=== PATIENT | female | born 1995 | race Caucasian/White ===

== ENCOUNTER → 2017-11-27 | Outpatient (CLI) | payer OTHER ==
[~2017-11-27] MED LIST: CLR10 PO; VNTHFA/IN INH
== END | disposition home or self-care (01) ==
LOC: C.LAB 16:01
PROVIDERS: ATTEND Physician Assistant
DX: L52 Erythema nodosum (principal)

== ENCOUNTER 2019-02-24 09:26 | Inpatient (IN) ==
[2019-02-24] MEDS ORDERED: DIPHTHERIA/TETANUS/PERTUSSIS 0.5 ML SYR/VIAL IM ONE (10:02)
[2019-02-24 10:13] LABS: Appearance Urine Cloudy (Clear); Bilirubin Urine Negative (Negative); Blood Urine Negative (Negative); Color Urine Yellow; Glucose Urine UA Negative (Negative); Ketones Urine Negative (Negative); Leukocyte Esterase Urine Negative (Negative); Nitrite Urine Negative (Negative); Protein Urine Negative (Negative); Specific Gravity Urine 1.008 (1.000-1.030); Urobilinogen Urine Negative (Negative); pH Urine 7.5 (4.5-7.5)
[2019-02-24 10:20] LABS: Epithelial Cell Urine >30 /lpf (0-5)
[2019-02-24 10:21] LABS: Bacteria Urine 3+ (Negative); Hyaline Casts Urine 0-5 /lpf (0-5); RBC Urine 0-4 /hpf (0-4)
[2019-02-24 10:23] LABS: Basophils # (auto) 0.03 K/uL (0-0.2); Basophils % (auto) 0.4 %; Eosinophils # (auto) 0.25 K/uL (0-0.5); Eosinophils % (auto) 3.2 %; Hematocrit (blood only) 42.8 % (37-47); Hemoglobin 15.4 g/dL (12.0-16.0); Immature Granulocytes # (auto) 0.01 K/uL (0.00-0.02); Immature Granulocytes % (auto) 0.1 %; Lymphocytes # (auto) 1.76 K/uL (1.2-3.4); Lymphocytes % (auto) 22.3 %; Mean Corpuscular Hemoglobin 33.1 pg (25-34); Mean Platelet Volume 10.6 fL (7.4-10.4); Monocytes # (auto) 0.54 K/uL (0.11-0.59); Monocytes % (auto) 6.8 %; Neutrophils % (auto) 67.2 %; Platelet Count 277 K/uL (130-400); RDW Coefficient of Variation 12.7 % (11.5-14.5); RDW Standard Deviation 42.5 fL (36.4-46.3); Red Blood Count 4.65 M/uL (4.2-5.4); White Blood Count 7.89 K/uL (4.8-10.8)
[2019-02-24 10:39] LABS: Albumin Level 4.6 gm/dl (3.4-5.0); BUN Creatinine Ratio 11.7 (10-20); Calcium 9.2 mg/dl (8.5-10.1); Creatinine Clr Calc Pharmacy 120.8 ml/min; Est GFR (African American) 147.1; Est GFR (Non-African American) 126.9; Potassium 3.5 mmol/L (3.5-5.1)
[2019-02-24 10:46] LABS: Acetaminophen < 2 ug/ml (10-30); Salicylate < 1.7 mg/dl (2.8-20)
[2019-02-24 10:46] LABS: Amphetamines+Metham, Urine Neg (Neg); Barbiturates, Urine Neg (Neg); Benzodiazepine, Urine Neg (Neg); Cocaine, Urine Neg (Neg); MDMA (Ecstacy), Urine Neg (Neg); Methadone, Urine Neg (Neg); Opiate, Urine Neg (Neg); Phencyclidine, Urine Neg (Neg)
[2019-02-24 10:50] LABS: Albumin Globulin Ratio 1.5 (0.9-2); Bilirubin,Total 0.7 mg/dl (0.2-1); Thyroid Stimulating Hormone 0.559 uIu/ml (0.300-4.500); Total Protein 7.6 gm/dl (6.4-8.2)
[2019-02-24] MEDS ORDERED: SODIUM CHLORIDE 0.65% NA SOLN 45 ML (OCEAN) PRN (12:49)
[2019-02-24] MEDS ORDERED: ALUMINUM/MAGNESIUM SUSP 30 ML UDC PO PRN (12:49)
[2019-02-24] MEDS ORDERED: MAGNESIUM HYDROXIDE SUSP 30 ML UDC PO PRN (12:49)
[2019-02-24] MEDS ORDERED: ACETAMINOPHEN 325 MG TAB PO PRN (12:49)
[2019-02-24] MEDS ORDERED: BISMUTH SUBSALICYLATE PER ML OMNICELL CHARGE PO PRN (12:49)
[2019-02-24] MEDS ORDERED: hydrOXYzine HCl 10 MG TAB PO PRN (12:49)
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
--- NOTE | 2019-02-24 13:17 | Emergency Department Note ---
Entered by Chidi Guaman acting as a scribe for Kraig Jessica History of Present Illness General Chief complaint: Mental Health Evaluation Stated complaint: MENTAL HEALTH Time Seen by Provider: 02/24/19 09:45 Source: patient Mode of arrival: ambulatory Limitations: no limitations History of Present Illness Onset (ago): day(s) (this morning) Location: head Pain Consistency: + intermittent Quality: + other (episode) Associated symptoms: + denies other symptoms (no loss in normal feelings, no guilt, no changes in energy level, no concentration loss and no headaches, suicidal ideation) and + other (self harm ) The patient is a 23 year old female who presents to the Emergency Room with complaints of an episode of intermittent mental illness that started this morning. The patient notes that she woke up with thoughts of hurting herself and cut herself with an exacto knife on both of her upper thighs. She states that she does not have any thoughts of hurting other people. She states that she w ants to receive help while she is here. She notes that at the age of 18 she received antianxiety and antidepressant medication but did not continue to take her medication. She notes that she has been sleeping very erratically. She notes she has no loss in normal feelings, no guilt, no changes in energy level, no concentration loss and no headaches. She reports that she does not know when her last tetanus shot was. Home Medications Home Medications Medication Instructions Recorded Confirmed Type ALBUTEROL HFA (VENTOLIN HFA) 2 puff INHALATION Q6H PRN #0 10/19/17 02/24/19 History Allergies Allergy/AdvReac Type Severity Reaction Status Date / Time egg Allergy Severe Anaphylaxis Verified 02/24/19 09:52 oxycodone Allergy Unknown VIOLENTLY Verified 10/26/17 06:34 VOMITS Past Med/Surg History Social History Feels Safe at Home: Yes Smoking Status: Current some day smoker Tobacco Type: cigarettes ; Review of Systems See HPI for pertinent positives & negatives. and A total of 10 systems reviewed and were otherwise negative Physical Exam Vital Signs Vital Signs - 24 hr 02/24/19 09:30 02/24/19 11:26 Temperature 36.6 C Temperature Source Oral Pulse Rate 84 Pulse Rate [Finger] 82 Respiratory Rate 18 20 Respiratory Depth Normal Blood Pressure 130/86 Blood Pressure [Left Arm] 132/81 Blood Pressure Mean 100 Blood Pressure Mean [Left Arm] 98 Pulse Oximetry 99 98 Oxygen Delivery Method Room Air Room Air Sepsis Recent Fever Within 48 Hours No Sepsis New/Unexplained Change in Mental Status No Sepsis Action Taken by Nursing No Action Required GENERAL: She is oriented to person, place, and time. She appears well-developed and well-nourished. She does not appear distressed. HENT: Exam performed. Head: Normocephalic and atraumatic. Right Ear: External ear normal. No mastoid tenderness. Left Ear: External ear normal. No mastoid tenderness. Mouth/Throat: The oropharynx is clear and moist. No trismus in the jaw. No dental abscesses or uvula swelling. No oropharyngeal exudate or tonsillar abscesses. EYES: Conjunctivae and EOM are normal. Pupils are equal, round, and reactive to light. Right eye exhibits no discharge. Left eye exhibits no discharge. No scleral icterus. NECK: Normal range of motion. Neck supple. No JVD present. No spinous process tenderness present. No carotid bruit present. No rigidity. No tracheal deviation and normal range of motion present. No Brudzinski's sign and no Kernig's sign noted. CV: Normal rate, regular rhythm, normal heart sounds and intact distal pulses. There is no peripheral edema. Palpable radial pulses bue. PULM/CHEST: Effort normal and breath sounds normal. No respiratory distress. No stridor. She has no wheezes. She has no rales. Chest Wall: She exhibits no tenderness. ABD: The abdomen is soft. Bowel sounds are normal. She has no distension. No mass is present. There is no tenderness. There is no rebound, no guarding, no Morgan's sign and no tenderness at McBurney's point. Rovsig negative MUSC/SKEL: Normal range of motion. There is no peripheral edema, tenderness or deformity. Abrasions of bilateral thighs. LYMPH: No cervical adenopathy. NEURO: She is alert and oriented to person, place, and time. She has normal strength. No cranial nerve deficit or sensory deficit. Coordination and gait normal. GCS eye subscore is 4. GCS verbal subscore is 5. GCS motor subscore is 6. cerbellar tests wnl. SKIN: Skin is warm and dry. She is not diaphoretic. PSYCH: Abnormal affectl. Course Course A05: The patient was evaluated in room 0957. A complete history and physical exam was performed. 1250: Vitals are stable, the patient was medically cleared and will be admitted to [address] [place] [address]. Administered Medications Discontinued Medications Diphtheria/Pertussis/Tetanus Vacc (Adacel) 0.5 ml IM .ONCE ONE Stop: 02/24/19 10:03 Last Admin: 02/24/19 10:39 Dose: 0.5 ml Documented by: [id number] Impression & Plan Suicidal ideation Discharge Plan Visit Data *Final* Discharge Date/Time: 02/24/19 12:49 Chief Complaint: Mental Health Evaluation Stated Complaint: MENTAL HEALTH ED Provider: Kraig Jessica Discharge Problem: Suicidal ideation Patient Disposition: Admitted As Inpatient Discharge Instructions Interventions: ED Discharge Assessment Last Done: 02/24/19 12:49 Medical Decision Making Medical Records Attestation: I reviewed the patient's medical records. Home Medications Current Medication List: was personally reviewed by me Laboratory Data Attestation: I reviewed the patient's lab results. Result diagrams: 02/24/19 10:04 02/24/19 10:04 Lab Results 02/24/19 02/24/19 02/24/19 Range/Units 10:00 10:00 10:00 WBC (4.8-10.8) K/uL RBC (4.2-5.4) M/uL Hgb (12.0-16.0) g/dL Hct (37-47) % MCV (80-100) fL MCH (25-34) pg MCHC (32-36) g/dL RDW Std Deviation (36.4-46.3) fL RDW Coeff of Sonal (11.5-14.5) % Plt Count (130-400) K/uL MPV (7.4-10.4) fL Immature Gran % (Auto) % Neut % (Auto) % Lymph % (Auto) % [place] % (Auto) % Eos % (Auto) % Baso % (Auto) % Immature Gran # (Auto) (0.00-0.02) K/uL Neut # (Auto) (1.4-6.5) K/uL Lymph # (Auto) (1.2-3.4) K/uL [place] # (Auto) (0.11-0.59) K/uL Eos # (Auto) (0-0.5) K/uL Baso # (Auto) (0-0.2) K/uL Sodium (136-145) mmol/L Potassium (3.5-5.1) mmol/L Chloride (98-107) mmol/L Carbon Dioxide (21-32) mmol/L Anion Gap (3-11) BUN (7-18) mg/dl Creatinine (0.6-1.2) mg/dl Est Cr Clr Drug Dosing ml/min Est GFR ( Amer) Est GFR (Non-Af Amer) BUN/Creatinine Ratio (10-20) Glucose (70-99) mg/dl Calcium (8.5-10.1) mg/dl Total Bilirubin (0.2-1) mg/dl AST (15-37) U/L ALT (12-78) U/L Alkaline Phosphatase (45-117) U/L Total Protein (6.4-8.2) gm/dl Albumin (3.4-5.0) gm/dl Globulin (2.5-4.0) gm/dl Albumin/Globulin Ratio (0.9-2) TSH (0.300-4.500) uIu/ml Urine Color Yellow Urine Appearance Cloudy A (Clear) Urine pH 7.5 (4.5-7.5) Ur Specific [place] 1.008 (1.000-1.030) Urine Protein Negative (Negative) Urine Glucose (UA) Negative (Negative) Urine Ketones Negative (Negative) Urine Blood Negative (Negative) Urine Nitrite Negative (Negative) Urine Bilirubin Negative (Negative) Urine Urobilinogen Negative (Negative) Ur Leukocyte Esterase Negative (Negative) Urine RBC 0-4 (0-4) /hpf Urine WBC 5-10 H (0-5) /hpf Ur Epithelial Cells >30 H (0-5) /lpf Urine Bacteria 3+ H (Negative) Hyaline Casts 0-5 (0-5) /lpf POC Ur Test NEG (NEG) Salicylates (2.8-20) mg/dl Urine Opiates Screen Neg (Neg) Ur Methadone, Qual Neg (Neg) Acetaminophen (10-30) ug/ml Urine Barbiturates Neg (Neg) Ur Phencyclidine (PCP) Neg (Neg) U Amphetamin/Meth Scrn Neg (Neg) MDMA (Ecstasy) Screen Neg (Neg) U Benzodiazepines Scrn Neg (Neg) Ur Cocaine Metabolite Neg (Neg) U Marijuana (THC) Screen Pos H (Neg) Ethyl Alcohol mg/dL (0-3) mg/dl 02/24/19 02/24/19 02/24/19 Range/Units 10:04 10:04 10:04 WBC 7.89 (4.8-10.8) K/uL RBC 4.65 (4.2-5.4) M/uL Hgb 15.4 (12.0-16.0) g/dL Hct 42.8 (37-47) % MCV 92.0 (80-100) fL MCH 33.1 (25-34) pg MCHC 36.0 (32-36) g/dL RDW Std Deviation 42.5 (36.4-46.3) fL RDW Coeff of Sonal 12.7 (11.5-14.5) % Plt Count 277 (130-400) K/uL MPV 10.6 H (7.4-10.4) fL Immature Gran % (Auto) 0.1 % Neut % (Auto) 67.2 % Lymph % (Auto) 22.3 % [place] % (Auto) 6.8 % Eos % (Auto) 3.2 % Baso % (Auto) 0.4 % Immature Gran # (Auto) 0.01 (0.00-0.02) K/uL Neut # (Auto) 5.30 (1.4-6.5) K/uL Lymph # (Auto) 1.76 (1.2-3.4) K/uL [place] # (Auto) 0.54 (0.11-0.59) K/uL Eos # (Auto) 0.25 (0-0.5) K/uL Baso # (Auto) 0.03 (0-0.2) K/uL Sodium 139 (136-145) mmol/L Potassium 3.5 (3.5-5.1) mmol/L Chloride 106 (98-107) mmol/L Carbon Dioxide 26 (21-32) mmol/L Anion Gap 7.0 (3-11) BUN 7 (7-18) mg/dl Creatinine 0.61 (0.6-1.2) mg/dl Est Cr Clr Drug Dosing 120.8 ml/min Est GFR ( Amer) 147.1 Est GFR (Non-Af Amer) 126.9 BUN/Creatinine Ratio 11.7 (10-20) Glucose 91 (70-99) mg/dl Calcium 9.2 (8.5-10.1) mg/dl Total Bilirubin 0.7 (0.2-1) mg/dl AST 19 (15-37) U/L ALT 24 (12-78) U/L Alkaline Phosphatase 46 (45-117) U/L Total Protein 7.6 (6.4-8.2) gm/dl Albumin 4.6 (3.4-5.0) gm/dl Globulin 3.0 (2.5-4.0) gm/dl Albumin/Globulin Ratio 1.5 (0.9-2) TSH 0.559 (0.300-4.500) uIu/ml Urine Color Urine Appearance (Clear) Urine pH (4.5-7.5) Ur Specific [place] (1.000-1.030) Urine Protein (Negative) Urine Glucose (UA) (Negative) Urine Ketones (Negative) Urine Blood (Negative) Urine Nitrite (Negative) Urine Bilirubin (Negative) Urine Urobilinogen (Negative) Ur Leukocyte Esterase (Negative) Urine RBC (0-4) /hpf Urine WBC (0-5) /hpf Ur Epithelial Cells (0-5) /lpf Urine Bacteria (Negative) Hyaline Casts (0-5) /lpf POC Ur Test (NEG) Salicylates < 1.7 L (2.8-20) mg/dl Urine Opiates Screen (Neg) Ur Methadone, Qual (Neg) Acetaminophen < 2 L (10-30) ug/ml Urine Barbiturates (Neg) Ur Phencyclidine (PCP) (Neg) U Amphetamin/Meth Scrn (Neg) MDMA (Ecstasy) Screen (Neg) U Benzodiazepines Scrn (Neg) Ur Cocaine Metabolite (Neg) U Marijuana (THC) Screen (Neg) Ethyl Alcohol mg/dL (0-3) mg/dl 02/24/19 Range/Units 10:04 WBC (4.8-10.8) K/uL RBC (4.2-5.4) M/uL Hgb (12.0-16.0) g/dL Hct (37-47) % MCV (80-100) fL MCH (25-34) pg MCHC (32-36) g/dL RDW Std Deviation (36.4-46.3) fL RDW Coeff of Sonal (11.5-14.5) % Plt Count (130-400) K/uL MPV (7.4-10.4) fL Immature Gran % (Auto) % Neut % (Auto) % Lymph % (Auto) % [place] % (Auto) % Eos % (Auto) % Baso % (Auto) % Immature Gran # (Auto) (0.00-0.02) K/uL Neut # (Auto) (1.4-6.5) K/uL Lymph # (Auto) (1.2-3.4) K/uL [place] # (Auto) (0.11-0.59) K/uL Eos # (Auto) (0-0.5) K/uL Baso # (Auto) (0-0.2) K/uL Sodium (136-145) mmol/L Potassium (3.5-5.1) mmol/L Chloride (98-107) mmol/L Carbon Dioxide (21-32) mmol/L Anion Gap (3-11) BUN (7-18) mg/dl Creatinine (0.6-1.2) mg/dl Est Cr Clr Drug Dosing ml/min Est GFR ( Amer) Est GFR (Non-Af Amer) BUN/Creatinine Ratio (10-20) Glucose (70-99) mg/dl Calcium (8.5-10.1) mg/dl Total Bilirubin (0.2-1) mg/dl AST (15-37) U/L ALT (12-78) U/L Alkaline Phosphatase (45-117) U/L Total Protein (6.4-8.2) gm/dl Albumin (3.4-5.0) gm/dl Globulin (2.5-4.0) gm/dl Albumin/Globulin Ratio (0.9-2) TSH (0.300-4.500) uIu/ml Urine Color Urine Appearance (Clear) Urine pH (4.5-7.5) Ur Specific [place] (1.000-1.030) Urine Protein (Negative) Urine Glucose (UA) (Negative) Urine Ketones (Negative) Urine Blood (Negative) Urine Nitrite (Negative) Urine Bilirubin (Negative) Urine Urobilinogen (Negative) Ur Leukocyte Esterase (Negative) Urine RBC (0-4) /hpf Urine WBC (0-5) /hpf Ur Epithelial Cells (0-5) /lpf Urine Bacteria (Negative) Hyaline Casts (0-5) /lpf POC Ur Test (NEG) Salicylates (2.8-20) mg/dl Urine Opiates Screen (Neg) Ur Methadone, Qual (Neg) Acetaminophen (10-30) ug/ml Urine Barbiturates (Neg) Ur Phencyclidine (PCP) (Neg) U Amphetamin/Meth Scrn (Neg) MDMA (Ecstasy) Screen (Neg) U Benzodiazepines Scrn (Neg) Ur Cocaine Metabolite (Neg) U Marijuana (THC) Screen (Neg) Ethyl Alcohol mg/dL < 3.0 (0-3) mg/dl Blood Pressure Blood Pressure Findings: Elevated blood pressure Blood Pressure Disposition: further management by hospitalist The scribe's documentation has been prepared under my direction and personally reviewed by me in its entirety. I confirm that the note above accurately reflects all work, treatment, procedures, and medical decision making performed by me.
--- NOTE | 2019-02-24 13:37 | Emergency Department Note ---
Entered by Chidi Guaman acting as a scribe for Kraig Jessica History of Present Illness General Chief complaint: Mental Health Evaluation Stated complaint: MENTAL HEALTH Time Seen by Provider: 02/24/19 09:45 Source: patient Mode of arrival: ambulatory History of Present Illness Onset (ago): day(s) (this morning) Location: head Pain Consistency: + intermittent Quality: + other (episode) Associated symptoms: + denies other symptoms (no loss in normal feelings, no g uilt, no changes in energy level, no concentration loss and no headaches) and + other (seld harm) The patient is a 23 year old female who presents to the Emergency Room with complaints of self-inflicted cutting this morning. The patient notes that she woke up with thoughts of hurting herself and cut herself with an exacto knife on both of her upper thighs. She states that she does not have any thoughts of hurting other people. She states that she wants to receive help while she is here. She notes that at the age of 18 she received antianxiety and antidepress ant medication but did not continue to take her medication. She notes that she has been sleeping very erratically. She notes she has no loss in normal feelings, no guilt, no changes in energy level, no difficulties concentrating. She reports that she does not know when her last tetanus shot was Home Medications Home Medications Medication Instructions Recorded Confirmed Type ALBUTEROL HFA (VENTOLIN HFA) 2 puff INHALATION Q6H PRN #0 10/19/17 02/24/19 History Allergies Allergy/AdvReac Type Severity Reaction Status Date / Time egg Allergy Severe Anaphylaxis Verified 02/24/19 09:52 oxycodone Allergy Unknown VIOLENTLY Verified 10/26/17 06:34 VOMITS Past Med/Surg History Social History Feels Safe at Home: Yes Smoking Status: Current some day smoker Tobacco Type: cigarettes ; Review of Systems See HPI for pertinent positives & negatives. and A total of 10 systems reviewed and were otherwise negative Physical Exam Vital Signs Vital Signs - 24 hr 02/24/19 09:30 02/24/19 11:26 Temperature 36.6 C Temperature Source Oral Pulse Rate 84 Pulse Rate [Finger] 82 Respiratory Rate 18 20 Respiratory Depth Normal Blood Pressure 130/86 Blood Pressure [Left Arm] 132/81 Blood Pressure Mean 100 Blood Pressure Mean [Left Arm] 98 Pulse Oximetry 99 98 Oxygen Delivery Method Room Air Room Air Sepsis Recent Fever Within 48 Hours No Sepsis New/Unexplained Change in Mental Status No Sepsis Action Taken by Nursing No Action Required GENERAL: She is oriented to person, place, and time. She appears well-developed and well-nourished. She does not appear distressed. HENT: Exam performed. Head: Normocephalic and atraumatic. Right Ear: External ear normal. No mastoid tenderness. Left Ear: External ear normal. No mastoid tenderness. Mouth/Throat: The oropharynx is clear and moist. No trismus in the jaw. No dental abscesses or uvula swelling. No oropharyngeal exudate or tonsillar abscesses. EYES: Conjunctivae and EOM are normal. Pupils are equal, round, and reactive to light. Right eye exhibits no discharge. Left eye exhibits no discharge. No scler al icterus. NECK: Normal range of motion. Neck supple. No JVD present. No spinous process tenderness present. No carotid bruit present. No rigidity. No tracheal deviation and normal range of motion present. No Brudzinski's sign and no Kernig's sign noted. CV: Normal rate, regular rhythm, normal heart sounds and intact distal pulses. There is no peripheral edema. Palpable radial pulses bue. PULM/CHEST: Effort normal and breath sounds normal. No respiratory distress. No stridor. She has no wheezes. She has no rales. Chest Wall: She exhibits no tenderness. ABD: The abdomen is soft. Bowel sounds are normal. She has no distension. No mass is present. There is no tenderness. There is no rebound, no guarding, no Morgan's sign and no tenderness at McBurney's point. Rovsig negative MUSC/SKEL: Normal range of motion. There is no peripheral edema, tenderness or deformity. Abrasions of bilateral thighs. LYMPH: No cervical adenopathy. NEURO: She is alert and oriented to person, place, and time. She has normal strength. No cranial nerve deficit or sensory deficit. Coordination and gait normal. GCS eye subscore is 4. GCS verbal subscore is 5. GCS motor subscore is 6. cerbellar tests wnl. SKIN: Skin is warm and dry. She is not diaphoretic. PSYCH: Abnormal affectl. Course Course A05: The patient was evaluated in room 0957. A complete history and physical exam was performed. 1250: Vitals are stable, the patient was medically cleared and will be admitted to [address] [place] [address]. Administered Medications Discontinued Medications Diphtheria/Pertussis/Tetanus Vacc (Adacel) 0.5 ml IM .ONCE ONE Stop: 02/24/19 10:03 Last Admin: 02/24/19 10:39 Dose: 0.5 ml Documented by: [id number] Medical Decision Making Medical Records Attestation: I reviewed the patient's medical records. Home Medications Current Medication List: was personally reviewed by me Laboratory Data Attestation: I reviewed the patient's lab results. Result diagrams: 02/24/19 10:04 02/24/19 10:04 Lab Results 02/24/19 02/24/19 02/24/19 Range/Units 10:00 10:00 10:00 WBC (4.8-10.8) K/uL RBC (4.2-5.4) M/uL Hgb (12.0-16.0) g/dL Hct (37-47) % MCV (80-100) fL MCH (25-34) pg MCHC (32-36) g/dL RDW Std Deviation (36.4-46.3) fL RDW Coeff of Sonal (11.5-14.5) % Plt Count (130-400) K/uL MPV (7.4-10.4) fL Immature Gran % (Auto) % Neut % (Auto) % Lymph % (Auto) % Woodford % (Auto) % Eos % (Auto) % Baso % (Auto) % Immature Gran # (Auto) (0.00-0.02) K/uL Neut # (Auto) (1.4-6.5) K/uL Lymph # (Auto) (1.2-3.4) K/uL [place] # (Auto) (0.11-0.59) K/uL Eos # (Auto) (0-0.5) K/uL Baso # (Auto) (0-0.2) K/uL Sodium (136-145) mmol/L Potassium (3.5-5.1) mmol/L Chloride (98-107) mmol/L Carbon Dioxide (21-32) mmol/L Anion Gap (3-11) BUN (7-18) mg/dl Creatinine (0.6-1.2) mg/dl Est Cr Clr Drug Dosing ml/min Est GFR ( Amer) Est GFR (Non-Af Amer) BUN/Creatinine Ratio (10-20) Glucose (70-99) mg/dl Calcium (8.5-10.1) mg/dl Total Bilirubin (0.2-1) mg/dl AST (15-37) U/L ALT (12-78) U/L Alkaline Phosphatase (45-117) U/L Total Protein (6.4-8.2) gm/dl Albumin (3.4-5.0) gm/dl Globulin (2.5-4.0) gm/dl Albumin/Globulin Ratio (0.9-2) TSH (0.300-4.500) uIu/ml Urine Color Yellow Urine Appearance Cloudy A (Clear) Urine pH 7.5 (4.5-7.5) Ur Specific Sc[place]ey 1.008 (1.000-1.030) Urine Protein Negative (Negative) Urine Glucose (UA) Negative (Negative) Urine Ketones Negative (Negative) Urine Blood Negative (Negative) Urine Nitrite Negative (Negative) Urine Bilirubin Negative (Negative) Urine Urobilinogen Negative (Negative) Ur Leukocyte Esterase Negative (Negative) Urine RBC 0-4 (0-4) /hpf Urine WBC 5-10 H (0-5) /hpf Ur Epithelial Cells >30 H (0-5) /lpf Urine Bacteria 3+ H (Negative) Hyaline Casts 0-5 (0-5) /lpf POC Ur Test NEG (NEG) Salicylates (2.8-20) mg/dl Urine Opiates Screen Neg (Neg) Ur Methadone, Qual Neg (Neg) Acetaminophen (10-30) ug/ml Urine Barbiturates Neg (Neg) Ur Phencyclidine (PCP) Neg (Neg) U Amphetamin/Meth Scrn Neg (Neg) MDMA (Ecstasy) Screen Neg (Neg) U Benzodiazepines Scrn Neg (Neg) Ur Cocaine Metabolite Neg (Neg) U Marijuana (THC) Screen Pos H (Neg) Ethyl Alcohol mg/dL (0-3) mg/dl 02/24/19 02/24/19 02/24/19 Range/Units 10:04 10:04 10:04 WBC 7.89 (4.8-10.8) K/uL RBC 4.65 (4.2-5.4) M/uL Hgb 15.4 (12.0-16.0) g/dL Hct 42.8 (37-47) % MCV 92.0 (80-100) fL MCH 33.1 (25-34) pg MCHC 36.0 (32-36) g/dL RDW Std Deviation 42.5 (36.4-46.3) fL RDW Coeff of Sonal 12.7 (11.5-14.5) % Plt Count 277 (130-400) K/uL MPV 10.6 H (7.4-10.4) fL Immature Gran % (Auto) 0.1 % Neut % (Auto) 67.2 % Lymph % (Auto) 22.3 % Woodford % (Auto) 6.8 % Eos % (Auto) 3.2 % Baso % (Auto) 0.4 % Immature Gran # (Auto) 0.01 (0.00-0.02) K/uL Neut # (Auto) 5.30 (1.4-6.5) K/uL Lymph # (Auto) 1.76 (1.2-3.4) K/uL [place] # (Auto) 0.54 (0.11-0.59) K/uL Eos # (Auto) 0.25 (0-0.5) K/uL Baso # (Auto) 0.03 (0-0.2) K/uL Sodium 139 (136-145) mmol/L Potassium 3.5 (3.5-5.1) mmol/L Chloride 106 (98-107) mmol/L Carbon Dioxide 26 (21-32) mmol/L Anion Gap 7.0 (3-11) BUN 7 (7-18) mg/dl Creatinine 0.61 (0.6-1.2) mg/dl Est Cr Clr Drug Dosing 120.8 ml/min Est GFR ( Amer) 147.1 Est GFR (Non-Af Amer) 126.9 BUN/Creatinine Ratio 11.7 (10-20) Glucose 91 (70-99) mg/dl Calcium 9.2 (8.5-10.1) mg/dl Total Bilirubin 0.7 (0.2-1) mg/dl AST 19 (15-37) U/L ALT 24 (12-78) U/L Alkaline Phosphatase 46 (45-117) U/L Total Protein 7.6 (6.4-8.2) gm/dl Albumin 4.6 (3.4-5.0) gm/dl Globulin 3.0 (2.5-4.0) gm/dl Albumin/Globulin Ratio 1.5 (0.9-2) TSH 0.559 (0.300-4.500) uIu/ml Urine Color Urine Appearance (Clear) Urine pH (4.5-7.5) Ur Specific Sc[place]ey (1.000-1.030) Urine Protein (Negative) Urine Glucose (UA) (Negative) Urine Ketones (Negative) Urine Blood (Negative) Urine Nitrite (Negative) Urine Bilirubin (Negative) Urine Urobilinogen (Negative) Ur Leukocyte Esterase (Negative) Urine RBC (0-4) /hpf Urine WBC (0-5) /hpf Ur Epithelial Cells (0-5) /lpf Urine Bacteria (Negative) Hyaline Casts (0-5) /lpf POC Ur Test (NEG) Salicylates < 1.7 L (2.8-20) mg/dl Urine Opiates Screen (Neg) Ur Methadone, Qual (Neg) Acetaminophen < 2 L (10-30) ug/ml Urine Barbiturates (Neg) Ur Phencyclidine (PCP) (Neg) U Amphetamin/Meth Scrn (Neg) MDMA (Ecstasy) Screen (Neg) U Benzodiazepines Scrn (Neg) Ur Cocaine Metabolite (Neg) U Marijuana (THC) Screen (Neg) Ethyl Alcohol mg/dL (0-3) mg/dl 02/24/19 Range/Units 10:04 WBC (4.8-10.8) K/uL RBC (4.2-5.4) M/uL Hgb (12.0-16.0) g/dL Hct (37-47) % MCV (80-100) fL MCH (25-34) pg MCHC (32-36) g/dL RDW Std Deviation (36.4-46.3) fL RDW Coeff of Sonal (11.5-14.5) % Plt Count (130-400) K/uL MPV (7.4-10.4) fL Immature Gran % (Auto) % Neut % (Auto) % Lymph % (Auto) % Woodford % (Auto) % Eos % (Auto) % Baso % (Auto) % Immature Gran # (Auto) (0.00-0.02) K/uL Neut # (Auto) (1.4-6.5) K/uL Lymph # (Auto) (1.2-3.4) K/uL [place] # (Auto) (0.11-0.59) K/uL Eos # (Auto) (0-0.5) K/uL Baso # (Auto) (0-0.2) K/uL Sodium (136-145) mmol/L Potassium (3.5-5.1) mmol/L Chloride (98-107) mmol/L Carbon Dioxide (21-32) mmol/L Anion Gap (3-11) BUN (7-18) mg/dl Creatinine (0.6-1.2) mg/dl Est Cr Clr Drug Dosing ml/min Est GFR ( Amer) Est GFR (Non-Af Amer) BUN/Creatinine Ratio (10-20) Glucose (70-99) mg/dl Calcium (8.5-10.1) mg/dl Total Bilirubin (0.2-1) mg/dl AST (15-37) U/L ALT (12-78) U/L Alkaline Phosphatase (45-117) U/L Total Protein (6.4-8.2) gm/dl Albumin (3.4-5.0) gm/dl Globulin (2.5-4.0) gm/dl Albumin/Globulin Ratio (0.9-2) TSH (0.300-4.500) uIu/ml Urine Color Urine Appearance (Clear) Urine pH (4.5-7.5) Ur Specific Sc[place]ey (1.000-1.030) Urine Protein (Negative) Urine Glucose (UA) (Negative) Urine Ketones (Negative) Urine Blood (Negative) Urine Nitrite (Negative) Urine Bilirubin (Negative) Urine Urobilinogen (Negative) Ur Leukocyte Esterase (Negative) Urine RBC (0-4) /hpf Urine WBC (0-5) /hpf Ur Epithelial Cells (0-5) /lpf Urine Bacteria (Negative) Hyaline Casts (0-5) /lpf POC Ur Test (NEG) Salicylates (2.8-20) mg/dl Urine Opiates Screen (Neg) Ur Methadone, Qual (Neg) Acetaminophen (10-30) ug/ml Urine Barbiturates (Neg) Ur Phencyclidine (PCP) (Neg) U Amphetamin/Meth Scrn (Neg) MDMA (Ecstasy) Screen (Neg) U Benzodiazepines Scrn (Neg) Ur Cocaine Metabolite (Neg) U Marijuana (THC) Screen (Neg) Ethyl Alcohol mg/dL < 3.0 (0-3) mg/dl Blood Pressure Blood Pressure Findings: Elevated blood pressure Blood Pressure Disposition: further management by hospitalist MDM Narrative Vitals are stable, the patient was medically cleared and will be admitted to [address] [place] [address]. Impression & Plan Suicidal ideation Discharge Plan Visit Data *Final* Discharge Date/Time: 02/24/19 12:49 Chief Complaint: Mental Health Evaluation Stated Complaint: MENTAL HEALTH ED Provider: Kraig Jessica Discharge Problem: Suicidal ideation Patient Disposition: Admitted As Inpatient Discharge Instructions Interventions: ED Discharge Assessment Last Done: 02/24/19 12:49 The scribe's documentation has been prepared under my direction and personally reviewed by me in its entirety. I confirm that the note above accurately reflects all work, treatment, procedures, and medical decision making performed by me.
[2019-02-24] MEDS ORDERED: FLUOXETINE HCL 10 MG CAP PO STA (15:29)
[2019-02-24] MEDS ORDERED: ALBUTEROL HFA 8 GM INHALER INH PRN (18:52)
[2019-02-25] MEDS: FLUOXETINE HCL 20 MG CAP PO SCH (09:20)
[2019-02-25] MEDS ORDERED: NICOTINE POLACRILEX 2 MG GUM MT PRN (13:27)
--- NOTE | 2019-02-25 17:56 | Psychiatric Progress Note ---
Date of Service February 25, 2019 Impression / Recommendations Impression 23-year-old female admitted voluntarily for inpatient psychiatric treatment on 02/24/19 after presenting to the ED with reports of worsening depression and anxiety. Having had an act of SIB by cutting prior to admission, patient states she was concerned that "a moment of weakness" would have the potential of severe harm to self. She requested treatment. Pt admits to having purchased an extension cord last week, which she keeps in the trunk of her car "just in case." She has no outpatient psychiatric prescribers. While patient currently meets criteria for major depressive disorder, generalized anxiety disorder, and PTSD - she self-reports "esteban" for a 1-2 day period after very low moods. She describes this as "catching up" for work not completed during episodes of limited motivation, but denies expansive thoughts, becoming hyperverbal, rapid speech, and reckless behaviors. She does admit to requiring less sleep at these times. Recommend observing for potential activation, but at this time symptoms do not seem to meet sufficient criteria for a bipolar II diagnosis. Medication options were discussed with the patient to target depression, anxiety, and PTSD symptoms. After reviewing risks, benefits, potential side effects, and risk for black box warning regarding potential SI with SSRI/SNRI initiation - patient was requesting to initiate fluoxetine. She was provided with a 10mg dose on 02/24 raised to 20mg a day on 02/25. Pt is agreeable with outpatient therapy referral. During her admission, she will be encouraged to participate in group and recreational programming. Family meeting with . At this time, inpatient psychiatric admission is medically necessary due to serious potential for harm to self or suicide if discharged prematurely. Dr. Georges Gray was directly involved in review and discussion of the patient's case and participated in medical decision making regarding treatment recommendations. (1) Suicidal ideation: 02/24 - Admitted to a locked inpatient behavioral health unit, on q15 minute safety checks - Encourage medication initiation/adjustments as indicated - Encourage participation in group and recreational therapies - Gather collateral information from outpatient providers - Suggest family meeting to involve outpatient supports in safety planning - Arrange appropriate aftercare (2) Depression: 02/24 - Initiate fluoxetine 10mg one-time dose today; increasing to 20mg qAM starting tomorrow morning - Encourage participation in group and recreational programming - Refer for outpatient psychiatrist and therapist - Encourage family meeting with /family 02/25 -fluoxetine 20mg a day starting today -family meeting with -addressing how therapy can be helpful (3) Generalized anxiety disorder with panic attacks: 02/24 - Initiate fluoxetine as above - Hydroxyzine 25mg prn for acute anxiety - Encourage development of healthy and effective coping strategies 02/25 - as above (4) PTSD (post-traumatic stress disorder): 02/24 - Initiate fluoxetine as outlined above - Pt agreeable with referral for outpatient therapy - Encourage participation in group and recreational programming 02/25 -as above, -reviewed grounding techniques and diaphemetric breathing -reviewed how therapy can help with containing symptoms and help her work through her trauma in more constructive manner (5) Asthma: 02/24 - Continue albuterol inhaler prn Inventory Assets Strengths: willingness for treatment, positive outpatient supports, desire for continued outpatient treatment Needs: initiation of indicated medications, development of healthy and effective coping strategies Risk Factors Assessment Male: No : Yes Do You Have Access To A Gun?: No Health Problems: No Mental Health Diagnoses: Yes Substance Use Disorders: No Previous Attempt: Yes Family History of Suicide: No Previous Psychiatric Hospitalization: No Hopelessness: Yes Smoker: Yes Protective Factors Assessment Christian Beliefs: Yes : Yes Responsible for Young Children: Yes Employed: Yes Stable Relationships: Yes Supportive Family: Yes Interval History Chief Complaint "ok anxious to get home". Review of Systems Sleep Information Total Hours of Sleep: 6.75 Meal Information Percent Meal Consumed - Breakfast: 100 Percent Meal Consumed - Lunch: 75 Percent Meal Consumed - Dinner: 75 Subjective Subjective Patient was seen & assessed and interval progress reviewed with Nursing and social work. Today's focus Was addressing patient's tendency to feel numbed out and have PTSD symptoms including reexperiencing symptoms and how they affect her this leads her to cut herself as a way to try and deal with things she also tends to feel numb and has avoidance of things that can trigger her flashbacks and intrusive memories and is 1 of the main reasons why she has been avoiding therapy in the past. We processed this and focused on how therapy can actually be helpful in helping her ground herself and deal with her symptoms and the more constructive way and to help her contain her emotional distress. We also focused on her family meeting that was about to occur with her and how he is open-minded and supportive but can struggle to understand how to help her and is not wanting to really believe in psychiatry and mental health concerns. She denied side effects to Prozac and is hopeful that it can help her lower her anxiety depression and PTSD symptoms she denied suicidal thinking today. She denied side effects to Prozac Physical Exam Psychiatric Orientation: alert, oriented x 3 and cooperative (and pleasant) Apperance: appropriately dressed, appropriately groomed and appeared stated age Eye Contact: good eye contact Motor Behavior: steady gait and station and no abnormal motor movements Speech: normal rate/rhythm/volume of speech Affect: + anxious affect and mood congruent with affect Mood: + anxious mood Thought Process: goal directed thought process, linear/logical thought process, clear/coherent thought process and thought association intact Thought Content: reality based without delusions Suicidal Thoughts: denies suicidal thoughts (presently, but was unable to contract for safety outside of the hospital) and denies suicidal intent (presently, but keeps suicide "as an option") Homicidal Thoughts: denies homicidal thoughts Hallucinations: no auditory hallucinations and no visual hallucinations Cognition: remote memory grossly intact, attention grossly intact and language grossly intact Estimated Intelligence: consistent with education level Insight: + fair insight Judgement: + fair judgement Vital Signs (Past 24 Hours) Last Vital Signs Temp 36.6 C 02/25/19 06:00 Pulse 106 H 02/25/19 06:40 Resp 17 02/25/19 06:00 BP 117/78 02/25/19 06:40 Pulse Ox 98 02/24/19 11:26 Results & Data Current Inpatient Medications Current Inpatient Medications: Current Inpatient Medications Acetaminophen (Tylenol) 650 mg PO Q4H PRN PRN Reason: Headache or Minor Fever Stop: 03/26/19 12:48 Last Admin: 02/24/19 15:44 Dose: 650 mg Documented by: Al Hydrox/Mg Hydrox/Simethicone (Maalox) 30 ml PO Q4H PRN PRN Reason: GI Upset Stop: 03/26/19 12:48 Albuterol (Ventolin Hfa) 2 puffs INH Q6H PRN PRN Reason: SOB/Wheezing Stop: 03/26/19 18:51 Bismuth Subsalicylate (Kaopectate) 15 ml PO PRN PRN PRN Reason: Loose Stool Stop: 03/26/19 12:48 Fluoxetine HCl (Prozac) 20 mg PO QAM DB Stop: 03/27/19 08:59 Last Admin: 02/25/19 09:20 Dose: 20 mg Documented by: Hydroxyzine HCl (Vistaril) 25 mg PO Q4H PRN PRN Reason: Anxiety Stop: 03/26/19 12:48 Hydroxyzine HCl (Vistaril) 50 mg PO HSZ PRN PRN Reason: insomnia Stop: 03/26/19 13:25 Magnesium Hydroxide (Milk Of Magnesia) 30 ml PO DAILY PRN PRN Reason: Constipation Stop: 03/26/19 12:48 Nicotine Polacrilex (Nicorette 2mg) 1 piece [place] PRN PRN PRN Reason: cravings Stop: 03/27/19 13:26 Sodium Chloride ([place] Nasal) 1 - 2 sprays NA PRN PRN PRN Reason: Nasal Dryness/Congestion Stop: 03/26/19 12:48 Mental Health & Subst Abuse Tx Therapist Name of Therapist: none Accident Report Clerk Name of Accident Report Clerk: none Post Discharge Appointments Primary Care Physician Name Of Family Doctor: Easton Rebolledo Primary Care Provider Appointment Comment: [address] [place] [address] Contact Information Discharge Discharge [address]: [address] [place] [address], [address] [address] (1) Depression Depression Type: unspecified Qualified Code(s): F32.9 - Major depressive disorder, single episode, unspecified
[2019-02-26] MEDS: FLUOXETINE HCL 20 MG CAP PO SCH (08:03)
--- NOTE | 2019-02-26 17:46 | Psychiatric Progress Note ---
Date of Service February 26, 2019 Impression / Recommendations Impression 23-year-old female admitted voluntarily for inpatient psychiatric treatment on 02/24/19 after presenting to the ED with reports of worsening depression and anxiety. Having had an act of SIB by cutting prior to admission, patient states she was concerned that "a moment of weakness" would have the potential of severe harm to self. She requested treatment. Pt admits to having purchased an extension cord last week, which she keeps in the trunk of her car "just in case." She has no outpatient psychiatric prescribers. While patient currently meets criteria for major depressive disorder, generalized anxiety disorder, and PTSD - she self-reports "esteban" for a 1-2 day period after very low moods. She describes this as "catching up" for work not completed during episodes of limited motivation, but denies expansive thoughts, becoming hyperverbal, rapid speech, and reckless behaviors. She does admit to requiring less sleep at these times. Recommend observing for potential activation, but at this time symptoms do not seem to meet sufficient criteria for a bipolar II diagnosis. Medication options were discussed with the patient to target depression, anxiety, and PTSD symptoms. After reviewing risks, benefits, potential side effects, and risk for black box warning regarding potential SI with SSRI/SNRI initiation - patient was requesting to initiate fluoxetine and feels it is tolerable to date and is hopeful about it. She is open to and now hopeful about therapy appts. Family meeting with went well and having good visitations with her family. she is participating in groups and engaging with staff/peers on the unit At this time, inpatient psychiatric admission is medically necessary due to serious potential for harm to self or suicide if discharged prematurely with progress be ing noted and working towards discharge as this is solidified and aftercare arranged (1) Suicidal ideation: 02/24 - Admitted to a locked inpatient behavioral health unit, on q15 minute safety checks - Encourage medication initiation/adjustments as indicated - Encourage participation in group and recreational therapies - Gather collateral information from outpatient providers - Suggest family meeting to involve outpatient supports in safety planning - Arrange appropriate aftercare (2) Depression: 02/24 - Initiate fluoxetine 10mg one-time dose today; increasing to 20mg qAM starting tomorrow morning - Encourage participation in group and recreational programming - Refer for outpatient psychiatrist and therapist - Encourage family meeting with /family 02/25 -fluoxetine 20mg a day starting today -family meeting with -addressing how therapy can be helpful 02/26 - continue treatment family meeting occurred and helpful per pt pt seeking outpt therapy appts (3) Generalized anxiety disorder with panic attacks: 02/24 - Initiate fluoxetine as above - Hydroxyzine 25mg prn for acute anxiety - Encourage development of healthy and effective coping strategies 02/25 - as above (4) PTSD (post-traumatic stress disorder): 02/24 - Initiate fluoxetine as outlined above - Pt agreeable with referral for outpatient therapy - Encourage participation in group and recreational programming 02/25 -as above, -reviewed grounding techniques and diaphemetric breathing -reviewed how therapy can help with containing symptoms and help her work through her trauma in more constructive manner 02/26 address how emotional tensions from past trauma can be experienced in more contained and manageable manner using experience in family meeting to illustrate (5) Asthma: 02/24 - Continue albuterol inhaler prn Inventory Assets Strengths: willingness for treatment, positive outpatient supports, desire for continued outpatient treatment Needs: initiation of indicated medications, development of healthy and effective coping strategies Risk Factors Assessment Male: No : Yes Do You Have Access To A Gun?: No Health Problems: No Mental Health Diagnoses: Yes Substance Use Disorders: No Previous Attempt: Yes Family History of Suicide: No Previous Psychiatric Hospitalization: No Hopelessness: Yes Smoker: Yes Protective Factors Assessment Jainism Beliefs: Yes : Yes Responsible for Young Children: Yes Employed: Yes Stable Relationships: Yes Supportive Family: Yes Interval History Chief Complaint "[]". Review of Systems Sleep Information Total Hours of Sleep: 6.5 Meal Information Percent Meal Consumed - Breakfast: 90 Percent Meal Consumed - Lunch: 90 Percent Meal Consumed - Dinner: 50 Subjective Subjective Patient was seen & assessed and interval progress reviewed with nursing and social work. pt had a good family meeting with her regarding her PTSD and mood and anxiety symptoms and he was open and receptive to it She was able to talk some about her trauma and symptoms with only some emotional and physical symptoms that were containable and manageable for her that also quickly settled down, which is new for her. She is feeling hopeful about her prognosis and about her treatment plan. She is hopeful about starting therapy appts after discharge. She is wondering about discharge shortly. She is tolerating Prozac and is hopeful that it will be an alleviating factor. She is sleeping well on the unit. She denied flashbacks. She is without SI. She is engaging with staff and peers and had a good visit this afternoon with her parents and aunt Physical Exam Psychiatric Orientation: alert, oriented x 3 and cooperative (and pleasant) Apperance: appropriately dressed, appropriately groomed and appeared stated age Eye Contact: good eye contact Motor Behavior: steady gait and station and no abnormal motor movements Speech: normal rate/rhythm/volume of speech Affect: + depressed affect, + anxious affect and mood congruent with affect Mood: + depressed mood ("I just always feel like I'm dragging.") and + anxious mood Thought Process: goal directed thought process, linear/logical thought process, clear/coherent thought process and thought association intact Thought Content: reality based without delusions, + hopelessness and + self deprecation Suicidal Thoughts: denies suicidal thoughts (presently, but was unable to contract for safety outside of the hospital) and denies suicidal intent (presently, but keeps suicide "as an option"); + reports suicidal plan Homicidal Thoughts: denies homicidal thoughts Hallucinations: no auditory hallucinations and no visual hallucinations Cognition: remote memory grossly intact, attention grossly intact and language grossly intact Estimated Intelligence: consistent with education level Insight: + impaired insight and + fair insight Judgement: + fair judgement Vital Signs (Past 24 Hours) Last Vital Signs Temp 36.8 C 02/26/19 06:00 Pulse 103 H 02/26/19 06:24 Resp 16 02/26/19 06:00 BP 107/75 02/26/19 06:24 Pulse Ox 98 02/24/19 11:26 Results & Data Current Inpatient Medications Current Inpatient Medications: Current Inpatient Medications Acetaminophen (Tylenol) 650 mg PO Q4H PRN PRN Reason: Headache or Minor Fever Stop: 03/26/19 12:48 Last Admin: 02/24/19 15:44 Dose: 650 mg Documented by: Al Hydrox/Mg Hydrox/Simethicone (Maalox) 30 ml PO Q4H PRN PRN Reason: GI Upset Stop: 03/26/19 12:48 Albuterol (Ventolin Hfa) 2 puffs INH Q6H PRN PRN Reason: SOB/Wheezing Stop: 03/26/19 18:51 Bismuth Subsalicylate (Kaopectate) 15 ml PO PRN PRN PRN Reason: Loose Stool Stop: 03/26/19 12:48 Fluoxetine HCl (Prozac) 20 mg PO QAM DB Stop: 03/27/19 08:59 Last Admin: 02/26/19 08:03 Dose: 20 mg Documented by: Hydroxyzine HCl (Vistaril) 25 mg PO Q4H PRN PRN Reason: Anxiety Stop: 03/26/19 12:48 Hydroxyzine HCl (Vistaril) 50 mg PO HSZ PRN PRN Reason: insomnia Stop: 03/26/19 13:25 Magnesium Hydroxide (Milk Of Magnesia) 30 ml PO DAILY PRN PRN Reason: Constipation Stop: 03/26/19 12:48 Nicotine Polacrilex (Nicorette 2mg) 1 piece MT PRN PRN PRN Reason: cravings Stop: 03/27/19 13:26 Sodium Chloride ([place] Nasal) 1 - 2 sprays NA PRN PRN PRN Reason: Nasal Dryness/Congestion Stop: 03/26/19 12:48 Mental Health & Subst Abuse Tx Therapist Name of Therapist: none X Ray Developer Name of X Ray Developer: none Post Discharge Appointments Primary Care Physician Name Of Family Doctor: Easton Rebolledo Primary Care Provider Appointment Comment: [facility] [place] [address] Contact Information Discharge Discharge [address]: [address] [place] [address], [address] [address] (1) Depression Depression Type: unspecified Qualified Code(s): F32.9 - Major depressive disorder, single episode, unspecified
[2019-02-27] MEDS: FLUOXETINE HCL 20 MG CAP PO SCH (07:58)
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
== END 2019-02-27 15:25 | disposition home or self-care (01) | DRG 885 ==
LOC: ED 09:26 → 3S 12:49

== ENCOUNTER 2019-04-17 16:01 | Inpatient (IN) ==
[2019-04-17 17:15] LABS: Basophils # (auto) 0.03 K/uL (0-0.2); Basophils % (auto) 0.4 %; Eosinophils % (auto) 1.4 %; Hematocrit (blood only) 43.8 % (37-47); Hemoglobin 15.5 g/dL (12.0-16.0); Immature Granulocytes # (auto) 0.01 K/uL (0.00-0.02); Immature Granulocytes % (auto) 0.1 %; Lymphocytes # (auto) 1.29 K/uL (1.2-3.4); Lymphocytes % (auto) 17.7 %; Mean Corpuscular Hemoglobin 32.6 pg (25-34); Mean Corpuscular Hgb Conc 35.4 g/dL (32-36); Mean Platelet Volume 10.9 fL (7.4-10.4); Monocytes # (auto) 0.56 K/uL (0.11-0.59); Monocytes % (auto) 7.7 %; Neutrophils # (auto) 5.31 K/uL (1.4-6.5); Neutrophils % (auto) 72.7 %; Platelet Count 261 K/uL (130-400); RDW Coefficient of Variation 12.5 % (11.5-14.5); RDW Standard Deviation 42.2 fL (36.4-46.3); Red Blood Count 4.76 M/uL (4.2-5.4)
[2019-04-17 17:20] LABS: Albumin Level 4.7 gm/dl (3.4-5.0); BUN Creatinine Ratio 18.7 (10-20); Calcium 9.9 mg/dl (8.5-10.1); Creatinine Clr Calc Pharmacy 93.7 ml/min; Est GFR (African American) 140.5; Est GFR (Non-African American) 121.3; Potassium 3.8 mmol/L (3.5-5.1); Salicylate 10.9 mg/dl (2.8-20)
[2019-04-17 17:30] LABS: Albumin Globulin Ratio 1.6 (0.9-2); Bilirubin,Total 0.7 mg/dl (0.2-1); Thyroid Stimulating Hormone 0.622 uIu/ml (0.300-4.500); Total Protein 7.7 gm/dl (6.4-8.2)
[2019-04-17 17:55] LABS: Appearance Urine Turbid (Clear); Bacteria Urine Automated 2+ (Negative); Bilirubin Urine Negative (Negative); Blood Urine 1+ (Negative); Color Urine Dark Yellow; Glucose Urine UA Negative (Negative); Ketones Urine 2+ (Negative); Leukocyte Esterase Urine 3+ (Negative); Nitrite Urine Negative (Negative); Protein Urine Trace (Negative); Specific Gravity Urine 1.017 (1.000-1.030); Urobilinogen Urine Negative (Negative); WBC Urine Automated >30 /hpf (0-5)
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
[2019-04-17 18:30] LABS: Amphetamines+Metham, Urine Pos (Neg); Barbiturates, Urine Neg (Neg); Benzodiazepine, Urine Neg (Neg); Cocaine, Urine Neg (Neg); MDMA (Ecstacy), Urine Pos (Neg); Methadone, Urine Neg (Neg); Opiate, Urine Neg (Neg); Phencyclidine, Urine Neg (Neg)
[2019-04-17] MEDS ORDERED: MAGNESIUM HYDROXIDE SUSP 30 ML UDC PO PRN (19:29)
[2019-04-17] MEDS ORDERED: SODIUM CHLORIDE 0.65% NA SOLN 45 ML (OCEAN) PRN (19:29)
[2019-04-17] MEDS ORDERED: BISMUTH SUBSALICYLATE PER ML OMNICELL CHARGE PO PRN (19:29)
[2019-04-17] MEDS ORDERED: ALUMINUM/MAGNESIUM SUSP 30 ML UDC PO PRN (19:29)
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
[2019-04-18] MEDS ORDERED: FLUOXETINE HCL 20 MG CAP PO SCH (09:00)
[2019-04-19] MEDS: FLUOXETINE HCL 10 MG CAP PO SCH (08:54)
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
[2019-04-20] MEDS: FLUOXETINE HCL 10 MG CAP PO SCH (08:35)
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
[2019-04-21] MEDS: FLUOXETINE HCL 10 MG CAP PO SCH (09:20)
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
[2019-04-21 16:25] LABS: Amphetamine Urine, Confirm 1040 ng/mL (<250); MDA negative; MDEA negative; MDMA (Ecstasy) Urine, Confirm negative; Marijuana Quant, GCMS Urine 37 ng/mL (<5); Methamphetamine, Ur Confirm >15000 ng/mL (<250)
[2019-04-22] MEDS: FLUOXETINE HCL 10 MG CAP PO SCH (08:50)
[2019-04-22] MEDS: ACETAMINOPHEN 325 MG TAB PO PRN ×2 (09:25→17:46)
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
[2019-04-23] MEDS: FLUOXETINE HCL 10 MG CAP PO SCH (08:32)
--- NOTE | 2019-04-23 10:17 | Discharge Summary ---
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 Refused (Patient smokes <5 cigarettes a day, did not require nicotine replacement/medication here, and declines offers for this at discharge.) Contact Information Discharge Discharge Address: [address] [address] Discharge Plan Discharge Items Patient Disposition: Home - Self-Care Reason For Visit: MDD Discharge Diagnosis: Depression PTSD EMA Methamphetamine and cannabis abuse Activity: Per Instructions section Non-emergency contact: Primary Care Provider, Optical Instruments Supervisor, Psychiatrist, Therapist and Kiln Pusher Call non-emergency contact if: you have any medication questions and your symptoms worsen Follow-up/Referrals: Colin Rebolledo MD [Primary Care Provider] - Diet: Regular Addtl Attending Provider Instructions: SPECIAL CARE INSTRUCTIONS: 1. Follow through with your scheduled aftercare appointments. If unable to keep an appointment, please call to reschedule. 2. Take your medication only as prescribed. Medication should not be changed or stopped without the approval of your doctor. In the event of worsening symptoms or concerns about side effects, contact your doctor immediately. 3. Utilize new healthy coping skills, anger management skills, and stress management skills learned during your hospitalization. Journal feelings and process them with a support person. Identify stressors or situations that may result in relapse, deterioration or inappropriate behaviors and develop a plan to deal with those issues. 4. If your coping skills are ineffective and you are in crisis, contact your outpatient providers for direction. If unable to reach your providers, please call the CAN HELP LINE AT or go to the closest Emergency Room. 5. Avoid alcohol and un-prescribed drugs. Methamphetamine and cannabis can worsen mood and anxiety symptoms. 6. You have been provided with the Mental Health Advance Directives Pamphlet for your review. AFTERCARE APPOINTMENTS: * Please call your insurance company prior to your scheduled appointment to confirm your aftercare providers are covered. Take your insurance information to your appointments. WHO TO CALL AND WHEN: Medical Emergencies: For questions or emergencies related to your hospital stay, please contact the Inpatient Behavioral Health Unit at [phone]. A circular shear operator is on-call 02/11 for the Behavioral Health Unit for emergencies At any time you feel your situation is an emergency, you may also call 911 immediately. Your Doctors Instructions noted above were prepared by provider Jayne Unger MD. Pending Studies at Discharge: No Stand-Alone Forms: [facility], Smoking Cessation, Suicide Prevention Resources Medications and DC Order Prescriptions: New fluoxetine 10 mg Capsule 30 mg PO QAM Qty: 90 RF: 0 hydroxyzine HCl 50 mg tablet 50 mg PO HS Qty: 30 RF: 0 Discontinued fluoxetine 20 mg Capsule 20 mg PO QAM Qty: 30 RF: 0 Discharge Orders: Discharge Order (Routine); Ordered 04/23/19 Ordered By: Jayne Unger Admission Data Admit Date/Time: 04/17/19 19:29 Attending Provider: Jayne Unger Admit Provider: Jennifer Yost Primary Care Provider: Colin Rebolledo Other Interventions: Discharge Summary Assessment (RN) Last Done: 04/22/19 08:26 PSY Interdisciplinary Discharge Planning Last Done: 04/23/19 09:34 Coding Level of Care Code 34419 D/C day mgmt > 30 min Diagnoses Suicidal ideation R45.851 Depression F32.9 Depression Type: unspecified PTSD (post-traumatic stress disorder) F43.10 Generalized anxiety disorder with panic attacks F41.1; F41.0 Cannabis abuse F12.10 Methamphetamine abuse F15.10 Abnormal urinalysis R82.90
== END 2019-04-23 10:51 | disposition home or self-care (01) | DRG 881 ==
LOC: ED 16:01 → 3S 19:29

== ENCOUNTER 2020-08-19 07:43 | Inpatient (IN) ==
[2020-08-19] MEDS ORDERED: OXYTOCIN 30 UNITS/500 ML BAG IV PRN ×2 (09:14→10:13)
[2020-08-19] MEDS ORDERED: PENICILLIN G POTASSIUM 6 MU in DEXTROSE 5% 250 ML IV ONE (09:30)
[2020-08-19 09:49] LABS: Hematocrit (blood only) 34.5 % (37-47); Hemoglobin 11.4 g/dL (12.0-16.0); Mean Corpuscular Hemoglobin 28.4 pg (25-34); Mean Corpuscular Volume 85.8 fL (80-100); Mean Platelet Volume 10.3 fL (7.4-10.4); Platelet Count 190 K/uL (130-400); RDW Coefficient of Variation 15.2 % (11.5-14.5); RDW Standard Deviation 47.8 fL (36.4-46.3); Red Blood Count 4.02 M/uL (4.2-5.4); White Blood Count 9.66 K/uL (4.8-10.8)
--- NOTE | 2020-08-19 10:13 | Progress Note ---
Date of Service August 19, 2020 Assessment & Plan Admission and Anticipated Discharge Date Admission Date: August 19, 2020 Subjective Met pt and reviewed PNC hx of drug abuse + GBS Bedside sono; Vt FHR; CAT1 VE; ft/post/thick jason bulb in cervix with 30cc saline pt tolerated procedure well Pitocin augmentation Results & Data ([facility]) Vital Signs (Past 12 Hours) Vital Signs Temp Pulse Resp BP 08/19/20 08:04 36.5 C 97 H 18 116/64 08/19/20 07:55 97 H 116/64
[2020-08-19 10:30] LABS: Amphetamines+Metham, Urine Neg (Neg); Barbiturates, Urine Neg (Neg); Benzodiazepine, Urine Neg (Neg); Cocaine, Urine Neg (Neg); MDMA (Ecstacy), Urine Neg (Neg); Methadone, Urine Neg (Neg); Opiate, Urine Neg (Neg); Phencyclidine, Urine Neg (Neg)
[2020-08-19] MEDS: LACTATED RINGER'S 1,000 ML IV PRN ×2 (11:11→18:26)
[2020-08-19] MEDS: PENICILLIN G POTASSIUM 3 MU in DEXTROSE 5% 100 ML IV PRN ×2 (15:11→19:08)
[2020-08-19] MEDS ORDERED: fentaNYL citrate 100 MCG/2 ML VIAL ONE (15:17)
[2020-08-19] MEDS ORDERED: SODIUM CHLORIDE 0.9% INJ 10 ML VIAL ONE (15:17)
[2020-08-19] MEDS ORDERED: ePHEDrine sulfate 50 MG/ML AMP ONE (15:17)
[2020-08-19] MEDS ORDERED: BUPIVACAINE 0.25% 30 ML VIAL ONE (15:17)
[2020-08-19] MEDS ORDERED: fentaNYL 2MCG/ML ROPIVACAINE 1.25MG/ML 100 ML BAG EPI ONE (15:18)
--- NOTE | 2020-08-19 15:31 | Progress Note ---
Date of Service August 19, 2020 Assessment & Plan Admission and Anticipated Discharge Date Admission Date: August 19, 2020 Subjective Doing well FHR; CAT1 Ctx 2-4mins Pit; 10Mu VE; 3/50/-3 pt wishes epiduralanalgesia Results & Data ([facility]) Vital Signs (Past 12 Hours) Vital Signs Temp Pulse Resp BP 08/19/20 14:42 82 113/71 08/19/20 13:24 90 117/74 08/19/20 12:16 86 120/75 08/19/20 12:15 36.5 C 86 18 120/75 08/19/20 08:04 36.5 C 97 H 18 116/64 08/19/20 07:55 97 H 116/64
[2020-08-19] MEDS ORDERED: NALOXONE HCL 1 MG in SODIUM CHLORIDE 0.9% 1000ML 1,000 ML IV PRN ×2 (15:41→21:02)
[2020-08-19] MEDS ORDERED: fentaNYL 2MCG/ML ROPIVACAINE 1.25MG/ML 100 ML BAG EPI PRN (15:41)
[2020-08-19] MEDS ORDERED: NALOXONE HCL 0.4 MG/1 ML VIAL/CARP IV PRN ×2 (15:41→21:02)
[2020-08-19] MEDS ORDERED: ePHEDrine sulfate 50 MG/ML AMP IV PRN ×2 (15:41→21:02)
[2020-08-19] MEDS ORDERED: ONDANSETRON INJ 2 MG/ML 2 ML VIAL IV PRN (15:41)
[2020-08-19] MEDS ORDERED: diphenhydrAMINE 50 MG/ML VIAL IV PRN ×2 (15:41→21:02)
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
[2020-08-19] MEDS ORDERED: TERBUTALINE SULFATE 1 MG/ML VIAL ONE (19:52)
[2020-08-19] MEDS ORDERED: OXYTOCIN 10 UNITS/ML VIAL ONE ×3 (19:59→21:14)
[2020-08-19] MEDS ORDERED: CHLOROPROCAINE HCL 3% 20 ML VIAL ONE (19:59)
[2020-08-19] MEDS ORDERED: MoRPHine SULFATE PF 1 MG/ML 10 ML AMP/VIAL ONE (20:00)
[2020-08-19] MEDS ORDERED: SODIUM BICARBONATE 8.4% INJ 50 MEQ/50 ML VIAL ONE (20:00)
[2020-08-19] MEDS ORDERED: PHENYLEPHRINE 100MCG/ML 5ML SYR ONE (20:00)
[2020-08-19] MEDS ORDERED: EPINEPHrine INJ 1 MG/ML AMP ONE (20:02)
[2020-08-19] MEDS ORDERED: PHENYLEPHRINE HCL 10 MG/ML VIAL ONE (20:31)
--- NOTE | 2020-08-19 20:31 | XRay Report ---
KUB CLINICAL HISTORY: EMERGENCY CSECTION, FOR INSTRUMENT COUNT COMPARISON STUDY: None. FINDINGS: Epidural catheter is incidentally noted. No unexpected radiopaque foreign bodies are identi fied within the pelvis. Note is made of a 6 cm linear radiodensity which projects over the left lower quadrant of the abdomen. IMPRESSION: 6 cm linear radiodensity which projects over the left lower quadrant of the abdomen. This may be on the patient however a retained object such as sponge cannot be excluded and therefore clin ical correlation is recommended. This finding will be called/faxed to the ordering provider at time o f dictation. ACT 112: Negative or not required by law. Electronically signed by: Marques Harris M.D. 08/19/2020 8:30 PM
[2020-08-19] MEDS ORDERED: MEPERIDINE HCL 25 MG/ML CARP/VIAL IV PRN (21:02)
[2020-08-19] MEDS ORDERED: NALOXONE HCL 0.08 MG in SYRINGE 1.8 ML IV PRN (21:02)
[2020-08-19] MEDS ORDERED: LACTATED RINGER'S 500 ML IV PRN (21:02)
[2020-08-19] MEDS ORDERED: MoRPHine SULFATE PF 1 MG/ML 10 ML AMP/VIAL EPI ONE (21:02)
[2020-08-19] MEDS ORDERED: ONDANSETRON INJ 2 MG/ML 2 ML VIAL ONE (21:06)
--- NOTE | 2020-08-19 21:07 | XRay Report ---
KUB CLINICAL HISTORY: EMERGENCY CSECTION, NO SPONGE COUNT COMPARISON STUDY: KUB August 19, 2020 at 8:04 PM. FINDINGS: There is a persistent linear radiodensity which projects over the left lower quadrant of th e abdomen. By report, no object was on the patient at the time of this exam. Therefore, this represen ts a retained sponge. Skin katyh from section are noted. IMPRESSION: Radiodensity projecting over the left lower quadrant of the abdomen consistent with a re tained sponge. This finding will be called/faxed to the ordering provider at time of dictation. ACT 112: Negative or not required by law. Electronically signed by: Marques Harris M.D. 08/19/2020 9:05 PM
[2020-08-19] MEDS ORDERED: SODIUM CHLORIDE 0.9% 1000ML 1,000 ML IV SCH (21:15)
[2020-08-19] MEDS ORDERED: DC INTRASPINAL MORPHINE SCH (21:15)
[2020-08-19] MEDS ORDERED: NO NARCOTICS OR SEDATIVES SCH (21:15)
--- NOTE | 2020-08-19 21:25 | XRay Report ---
KUB CLINICAL HISTORY: EMERGENCY CSECTION/SPONGE COUNT COMPARISON STUDY: KUB August 19, 2020 at 8:35 PM. FINDINGS: The retained sponge within the left lower quadrant shown on prior exam has been removed. Th ere are no unexpected radiopaque foreign bodies on this examination. There are skin kathy from cesa rean section. IMPRESSION: No unexpected radiopaque foreign bodies. Interval removal of the left lower quadrant ret ained sponge. ACT 112: Negative or not required by law. Electronically signed by: Marques Harris M.D. 08/19/2020 9:23 PM
[2020-08-19 21:50] LABS: Base Excess Cord Venous Blood -7.2 mEq/L (-7.7-1.9); Cord Venous Blood HCO3 20 mmol/L (18.4-26.8); Cord Venous Blood PCO2 45 mmHg (30.4-57.2); Cord Venous Blood PO2 27 mmHg (14.1-43.3); Cord Venous Blood pH 7.26 (7.20-7.44)
[2020-08-19 21:51] LABS: Base Excess Cord Arterial Bld -7.6 mEq/L (-9-1.8); CO2 Cord Arterial Blood 61 mmHg (39.1-73.5); HCO3 Cord Arterial Blood 22 mmol/L (19.7-28.5); PO2 Cord Arterial Blood 11 mmHg (4.1-31.7); pH Cord Arterial Blood 7.17 (7.1-7.38)
[2020-08-19 21:52] LABS: O2 Saturation Cord Venous Bld < 60.0 % (<68); Oxygen Sat Cord Arterial Blood < 60.0 % (<60)
--- NOTE | 2020-08-19 21:56 | Anesthesiology Progress Note ---
Date of Service August 19, 2020 Anesthesia Post Procedure Vital Signs Vital Signs: Temp Pulse Resp BP Pulse Ox 08/19/20 21:44 110 H 97 08/19/20 21:41 79 93 08/19/20 21:40 60 111/56 L 08/19/20 21:39 62 95 08/19/20 21:38 110 H 79/50 L 08/19/20 21:37 129 H 70/33 L 08/19/20 21:36 151 H 89 L 08/19/20 21:35 108 H 79/44 L 08/19/20 21:34 106 H 100 08/19/20 19:39 137 H 96 08/19/20 19:35 93 H 119/75 08/19/20 19:34 116 H 89 L 08/19/20 19:29 99 H 95 08/19/20 19:24 86 98 08/19/20 19:21 95 H 106/63 08/19/20 19:19 100 H 95 08/19/20 19:14 104 H 100 08/19/20 19:10 93 H 90 08/19/20 19:09 83 97 08/19/20 19:06 96 H 119/74 08/19/20 19:05 97 H 90 08/19/20 19:04 88 98 08/19/20 19:00 36.5 C 18 08/19/20 18:59 79 96 08/19/20 18:54 86 96 08/19/20 18:51 84 88 L 08/19/20 18:50 81 116/71 08/19/20 18:49 87 99 08/19/20 18:44 84 100 08/19/20 18:43 87 89 L 08/19/20 18:41 37.0 C 16 08/19/20 18:39 86 97 08/19/20 18:36 92 H 106/65 08/19/20 18:35 81 88 L 08/19/20 18:34 92 H 95 08/19/20 18:29 100 H 95 08/19/20 18:24 98 H 98 08/19/20 18:20 92 H 107/62 08/19/20 18:19 80 94 08/19/20 18:14 98 H 93 08/19/20 18:09 80 94 08/19/20 18:07 82 111/63 08/19/20 18:04 85 96 08/19/20 17:59 83 93 08/19/20 17:54 85 95 08/19/20 17:50 96 H 108/66 08/19/20 17:49 79 92 08/19/20 17:44 82 94 08/19/20 17:39 86 94 08/19/20 17:37 83 111/66 08/19/20 17:34 80 93 08/19/20 17:29 84 92 08/19/20 17:24 97 H 96 08/19/20 17:20 102 H 83 L 08/19/20 17:19 93 H 101/57 L 100 08/19/20 17:14 125 H 95 08/19/20 17:10 107 H 101/59 L 08/19/20 17:09 103 H 98 08/19/20 17:04 101 H 98 08/19/20 16:59 112 H 92/52 L 97 08/19/20 16:54 97 H 98 08/19/20 16:49 111 H 99/59 L 95 08/19/20 16:44 104 H 98 08/19/20 16:39 106 H 98/62 L 98 08/19/20 16:34 101 H 100 08/19/20 16:30 97 H 105/59 L 08/19/20 16:29 94 H 99 08/19/20 16:24 96 H 99 08/19/20 16:20 93 H 101/65 08/19/20 16:19 90 100 08/19/20 16:14 96 H 100 08/19/20 16:09 97 H 99 08/19/20 16:07 93 H 103/61 08/19/20 16:05 86 103/54 L 08/19/20 16:04 96 H 100 08/19/20 16:03 87 105/59 L 08/19/20 16:01 98 H 89 L 08/19/20 16:00 86 120/73 08/19/20 15:59 86 98 08/19/20 15:55 98 H 94 08/19/20 15:54 107 H 98 08/19/20 15:50 103 H 90 08/19/20 15:49 108 H 92 08/19/20 15:45 99 H 92 08/19/20 15:44 102 H 95 08/19/20 15:39 93 H 100 08/19/20 15:36 83 94 08/19/20 15:34 86 100 08/19/20 15:32 84 121/76 08/19/20 14:42 82 113/71 08/19/20 13:24 90 117/74 08/19/20 12:16 86 120/75 08/19/20 12:15 36.5 C 86 18 120/75 08/19/20 08:04 36.5 C 97 H 18 116/64 08/19/20 07:55 97 H 116/64 Transfer of Care Handoff Completed per policy Notes Mental Status: alert / awake / arousable Patient Amnestic to Procedure: Yes Nausea / Vomiting: adequately controlled Pain: adequately controlled Airway Patency, RR, SpO2: stable & adequate BP & HR: stable & adequate and see Notes below Hydration State: stable & adequate Neuraxial Anesthesia: was administered and sensory block is resolving Anesthetic Complications: no major complications apparent and Pt Satisfied with anesthetic care Notes: The patient was a stat C section due to cord prolapse. The patient was rushed to the OR. Her epidural was dosed with chloroprocaine and the baby was crying upon . The patient was hypotensive and tachycardic throughout the operative period requiring IV fluid and multiple boluses of phenylephrine. Due to being an emergency, an x-ray was taken prior to closure of the abdomen. The final reading was not obtained until the patient was being transported out of the OR which showed a sponge in the abdomen. The patient was moved back to the OR table and reprepped. The anesthetic from the epidural was sufficient for the sponge to be removed and the wound closed. The patient was transported to her recovery room. She has remained slightly hypotensive and will continue to be monitored. She is otherwise comfortable.
[2020-08-19] MEDS ORDERED: OXYTOCIN 10 UNITS/ML VIAL IM ONE (22:43)
[2020-08-19] MEDS: KETOROLAC 30 MG/ML VIAL IV PRN (22:49)
[2020-08-19] MEDS ORDERED: BENZOCAINE 20% AER SPR 82.5 GM CAN EXT PRN (23:06)
[2020-08-19] MEDS ORDERED: DIPHTHERIA/TETANUS/PERTUSSIS 0.5 ML SYR/VIAL IM ONE (23:06)
[2020-08-19] MEDS ORDERED: SUPERCREAM 0.870% 15 GM JAR EXT PRN (23:06)
[2020-08-19] MEDS ORDERED: SENNA 8.6 MG TAB PO PRN (23:06)
[2020-08-19] MEDS ORDERED: HYDROCORTISONE ACETATE 25 MG SUPP PR PRN (23:06)
[2020-08-19] MEDS ORDERED: MAGNESIUM HYDROXIDE SUSP 30 ML UDC PO PRN (23:06)
--- NOTE | 2020-08-19 23:11 | Post Operative Brief Note ---
Immediate Post Op Note v1 Date of Surgery August 19, 2020 Pre & Post Diagnosis Operation Date: 08/19/20 19:00 Pre-Op Diagnosis: Cord Prolapse Post-Op Diagnosis: Cord Prolapse Operation Date: 08/19/20 19:45 <No data on this case meets the specified criteria> I identified the patient and participated in the time-out.: Yes Procedure Operation Date: 08/19/20 19:00 Actual Procedures p Section in LD 1948 LFC - Taye Kolb MD s Exploratory Laparotomy - Taye Kolb MD Operation Date: 08/19/20 19:45 <No data on this case meets the specified criteria> Surgeon Taye Kolb MD [employer]air Chief dr singh Estimated Blood Loss 700 Findings Consistent with Post-Op Diagnosis Drains Alston Catheter (Inserted after of baby)
[2020-08-19] MEDS: OXYTOCIN 20 UNITS in LACTATED RINGER'S 1,000 ML IV SCH (23:47)
[2020-08-20 06:00] LABS: Hematocrit (blood only) 23.4 % (37-47); Hemoglobin 7.6 g/dL (12.0-16.0); Mean Corpuscular Hemoglobin 28.5 pg (25-34); Mean Corpuscular Hgb Conc 32.5 g/dL (32-36); Mean Corpuscular Volume 87.6 fL (80-100); Mean Platelet Volume 9.9 fL (7.4-10.4); Platelet Count 157 K/uL (130-400); RDW Coefficient of Variation 15.4 % (11.5-14.5); RDW Standard Deviation 48.9 fL (36.4-46.3); Red Blood Count 2.67 M/uL (4.2-5.4); White Blood Count 12.29 K/uL (4.8-10.8)
[2020-08-20] MEDS: KETOROLAC 30 MG/ML VIAL IV PRN ×2 (06:05→14:26)
[2020-08-20 06:16] LABS: Basophils # (auto) 0.01 K/uL (0-0.2); Basophils % (auto) 0.1 %; Eosinophils # (auto) 0.01 K/uL (0-0.5); Eosinophils % (auto) 0.1 %; Immature Granulocytes # (auto) 0.03 K/uL (0.00-0.02); Immature Granulocytes % (auto) 0.2 %; Lymphocytes % (auto) 11.4 %; Monocytes # (auto) 0.88 K/uL (0.11-0.59); Monocytes % (auto) 7.2 %; Neutrophils # (auto) 9.96 K/uL (1.4-6.5); RBC Morphology Unremarkable
[2020-08-20] MEDS ORDERED: LACTATED RINGER'S 1,000 ML IV SCH (07:30)
--- NOTE | 2020-08-20 08:02 | Operative Report (OR) ---
DATE OF OPERATION: 08/19/2020 INDICATION FOR SURGERY: The patient was a laboring patient and after artificial rupture of membranes experienced cord prolapse. Decision was therefore made to perform a stat section. PREOPERATIVE DIAGNOSES: 1. at term. 2. Artificial rupture of membranes leading to cord prolapse. The patient was immediately taken to the operating room where stat section was performed. PROCEDURE: Stat section. SURGEON: Taye Kolb MD HEALTH SANITARIAN: Dr. Canales. ESTIMATED BLOOD LOSS: 700 mL. INTRAVENOUS FLUIDS: 2 liters. FINDINGS: Live infant in cephalic presentation, no nuchal cord was noted. Infant, however, did have cord palpated in the vagina. COMPLICATIONS: None. DRAINS: Alston catheter. SPECIMEN: Placenta. DESCRIPTION OF PROCEDURE: The patient was taken to the operating room where she was quickly prepped and draped in normal sterile fashion. A Pfannenstiel incision was made and carried down to the fascia. Fascia was incised in the midline and extended laterally on both sides. The rectus abdominus muscle was bluntly . Peritoneum was entered bluntly. Bowel was packed out of the operating field. Vesicouterine peritoneum was sharply dissected off the lower segment of the uterus. A scalpel was used to make an incision. was delivered, cord was clamped and cut, and handed over to the waiting pediatric team. 's weight and Apgars are in the pediatric record. Cord blood and cord gases were obtained. Placenta was manually removed. Uterus was exteriorized and cleared of all clots and debris. Uterus was closed in 2 layers with Vicryl stitch. Copious amount of irrigation was used to irrigate the abdomen. Uterus was returned into the abdominal cavity. Fascia was closed in a running fashion using Vicryl stitch. At the time of the fascial closure, x-ray was called to perform x-ray of the abdomen because this was a stat and instruments were not being counted prior to procedure. While waiting for the x-ray result, the skin was stapled. A phone call from x-ray showed that there was abdominal packing in the left pelvis. At this point, it was not sure if the pack that was seen was intra-abdominal or if this was the pack that was draped on the patient just for the x-ray to be performed. X-ray therefore was again repeated, the radiopaque structure persisted. Decision was therefore made to reopen the patient's abdomen. The patient's abdomen was prepped again and kathy were removed. Fascial suture was removed and once inside the abdomen, the pack was easily removed from the left pelvis. Fascia was reclosed. An x-ray was repeated at this time, it was confirmed that no further structures were seen in the abdomen. Skin was closed and the patient returned to recovery in stable condition. I attest to the content of the Intraoperative Record and any orders documented therein. Any exception s are noted below.
[2020-08-20] MEDS: DOCUSATE SODIUM 100 MG CAP PO SCH ×2 (08:25→21:02)
[2020-08-20] MEDS: SIMETHICONE 80 MG CHEW PO SCH ×3 (08:25→21:02)
[2020-08-20] MEDS: FERROUS SULFATE 325 MG TAB PO SCH (08:25)
[2020-08-20] MEDS: PRENATAL VITAMIN 1 TAB PO SCH (08:25)
[2020-08-20] MEDS: OXYTOCIN 20 UNITS in LACTATED RINGER'S 1,000 ML IV SCH (08:34)
--- NOTE | 2020-08-20 08:52 | Surgery Progress Note ---
Date of Service August 20, 2020 Assessment & Plan Admission and Anticipated Discharge Date Admission Date: August 19, 2020 Subjective POD#1 doing well has not passed gas yet Physical Exam Constitutional: WD/WN, vitals as above well developed and comfortable abdomen soft no pain or tenderness incision c/d/i no edema neg Scarlett's will advance care Results & Data ([facility]) Vital Signs (Past 12 Hours) Vital Signs Temp Pulse Pulse Resp BP BP Pulse Ox 08/20/20 07:00 18 98 08/20/20 06:00 18 97 08/20/20 05:00 18 96 08/20/20 04:10 36.8 C 88 16 95/66 L 99 08/20/20 04:00 18 99 08/20/20 03:00 18 96 08/20/20 02:00 16 94 08/20/20 00:55 36.6 C 94 H 16 106/69 98 08/19/20 23:55 36.9 C 96 H 16 109/72 98 08/19/20 23:44 106 H 98 08/19/20 23:39 96 H 98 08/19/20 23:35 103 H 115/57 L 08/19/20 23:34 105 H 98 08/19/20 23:30 102 H 103/52 L 08/19/20 23:29 100 H 99 08/19/20 23:25 93 H 16 103/52 L 08/19/20 23:24 96 H 97 08/19/20 23:20 96 H 102/51 L 08/19/20 23:19 95 H 97 08/19/20 23:15 95 H 105/53 L 08/19/20 23:14 97 H 97 08/19/20 23:09 105 H 98 08/19/20 23:05 100 H 106/58 L 08/19/20 23:04 102 H 99 08/19/20 23:00 96 H 95/53 L 08/19/20 22:59 97 H 98 08/19/20 22:55 105 H 16 91/50 L 08/19/20 22:54 107 H 100 08/19/20 22:50 96 H 104/59 L 08/19/20 22:49 95 H 99 08/19/20 22:45 101 H 105/61 08/19/20 22:44 100 H 100 08/19/20 22:40 102 H 103/57 L 08/19/20 22:39 102 H 99 08/19/20 22:35 107 H 104/57 L 08/19/20 22:34 104 H 100 08/19/20 22:30 99 H 103/56 L 08/19/20 22:29 99 H 100 08/19/20 22:25 36.8 C 101 H 16 110/66 08/19/20 22:24 96 H 100 08/19/20 22:20 98 H 103/57 L 08/19/20 22:19 100 H 99 08/19/20 22:15 106 H 104/57 L 08/19/20 22:14 98 H 99 08/19/20 22:10 104 H 103/55 L 08/19/20 22:09 107 H 99 08/19/20 22:05 36.4 C L 60 18 92/55 L 08/19/20 22:04 101 H 73 L 08/19/20 22:03 99 H 90 08/19/20 22:00 111 H 96/56 L 08/19/20 21:59 101 H 96 08/19/20 21:57 121 H 93 08/19/20 21:55 36.5 C 77 16 96/53 L 08/19/20 21:54 86 100 08/19/20 21:50 91 H 93/52 L 08/19/20 21:49 94 H 100 08/19/20 21:48 101 H 85/50 L 08/19/20 21:45 36.5 C 18 08/19/20 21:44 110 H 97 08/19/20 21:41 79 93 08/19/20 21:40 60 111/56 L 08/19/20 21:39 62 95 08/19/20 21:38 110 H 79/50 L 08/19/20 21:37 129 H 70/33 L 08/19/20 21:36 151 H 89 L 08/19/20 21:35 108 H 18 79/44 L 08/19/20 21:34 106 H 100 Laboratory Results 08/19/20 08/19/20 08/19/20 09:38 19:49 19:49 WBC 9.66 RBC 4.02 L Hgb 11.4 L Hct 34.5 L MCV 85.8 MCH 28.4 MCHC 33.0 RDW Std Deviation 47.8 H RDW Coeff of Sonal 15.2 H Plt Count 190 MPV 10.3 Immature Gran % (Auto) Neut % (Auto) Lymph % (Auto) [place] % (Auto) Eos % (Auto) Baso % (Auto) Neut # (Auto) Lymph # (Auto) [place] # (Auto) Eos # (Auto) Baso # (Auto) Immature Gran # (Auto) RBC Morphology Cord ABG pH 7.17 Cord ABG pCO2 61 Cord ABG pO2 11 Cord ABG HCO3 22 Cord ABG Base Excess -7.6 Cord ABG O2 Sat < 60.0 Cord VBG pH 7.26 Cord VBG pCO2 45 Cord VBG pO2 27 Cord VBG HCO3 20 Cord VBG Base Excess -7.2 Cord VBG O2 Sat < 60.0 Barometric Pressure 731.5 731.5 Blood Gas Comments A A Urine Opiates Screen Ur Methadone, Qual Urine Barbiturates Ur Phencyclidine (PCP) U Amphetamin/Meth Scrn MDMA (Ecstasy) Screen U Benzodiazepines Scrn Ur Cocaine Metabolite U Marijuana (THC) Screen COVID-19 Eval Order SARS-CoV-2, RNA, NAAT 08/19/20 08/19/20 08/19/20 Unknown Unknown Unknown WBC RBC Hgb Hct MCV MCH MCHC RDW Std Deviation RDW Coeff of Sonal Plt Count MPV Immature Gran % (Auto) Neut % (Auto) Lymph % (Auto) [place] % (Auto) Eos % (Auto) Baso % (Auto) Neut # (Auto) Lymph # (Auto) [place] # (Auto) Eos # (Auto) Baso # (Auto) Immature Gran # (Auto) RBC Morphology Cord ABG pH Cord ABG pCO2 Cord ABG pO2 Cord ABG HCO3 Cord ABG Base Excess Cord ABG O2 Sat Cord VBG pH Cord VBG pCO2 Cord VBG pO2 Cord VBG HCO3 Cord VBG Base Excess Cord VBG O2 Sat Barometric Pressure Blood Gas Comments Urine Opiates Screen Neg Ur Methadone, Qual Neg Urine Barbiturates Neg Ur Phencyclidine (PCP) Neg U Amphetamin/Meth Scrn Neg MDMA (Ecstasy) Screen Neg U Benzodiazepines Scrn Neg Ur Cocaine Metabolite Neg U Marijuana (THC) Screen Pos H COVID-19 Eval [facility] SARS-CoV-2, RNA, NAAT NEGATIVE 08/20/20 05:40 WBC 12.29 H RBC 2.67 L Hgb 7.6 L D Hct 23.4 L MCV 87.6 MCH 28.5 MCHC 32.5 RDW Std Deviation 48.9 H RDW Coeff of Sonal 15.4 H Plt Count 157 MPV 9.9 Immature Gran % (Auto) 0.2 Neut % (Auto) 81.0 Lymph % (Auto) 11.4 [place] % (Auto) 7.2 Eos % (Auto) 0.1 Baso % (Auto) 0.1 Neut # (Auto) 9.96 H Lymph # (Auto) 1.40 [place] # (Auto) 0.88 H Eos # (Auto) 0.01 Baso # (Auto) 0.01 Immature Gran # (Auto) 0.03 H RBC Morphology Unremarkable Cord ABG pH Cord ABG pCO2 Cord ABG pO2 Cord ABG HCO3 Cord ABG Base Excess Cord ABG O2 Sat Cord VBG pH Cord VBG pCO2 Cord VBG pO2 Cord VBG HCO3 Cord VBG Base Excess Cord VBG O2 Sat Barometric Pressure Blood Gas Comments Urine Opiates Screen Ur Methadone, Qual Urine Barbiturates Ur Phencyclidine (PCP) U Amphetamin/Meth Scrn MDMA (Ecstasy) Screen U Benzodiazepines Scrn Ur Cocaine Metabolite U Marijuana (THC) Screen COVID-19 Eval Order SARS-CoV-2, RNA, NAAT
--- NOTE | 2020-08-20 11:05 | Anesthesiology Progress Note ---
Date of Service August 20, 2020 Anesthesia Post Procedure Vital Signs Vital Signs: Temp Pulse Pulse Resp BP BP Pulse Ox 08/20/20 10:00 21 100 08/20/20 09:00 21 96 08/20/20 08:20 36.8 C 88 21 108/70 100 08/20/20 08:00 21 100 08/20/20 07:00 18 98 08/20/20 06:00 18 97 08/20/20 05:00 18 96 08/20/20 04:10 36.8 C 88 16 95/66 L 99 08/20/20 04:00 18 99 08/20/20 03:00 18 96 08/20/20 02:00 16 94 08/20/20 00:55 36.6 C 94 H 16 106/69 98 08/19/20 23:55 36.9 C 96 H 16 109/72 98 08/19/20 23:44 106 H 98 08/19/20 23:39 96 H 98 08/19/20 23:35 103 H 115/57 L 08/19/20 23:34 105 H 98 08/19/20 23:30 102 H 103/52 L 08/19/20 23:29 100 H 99 08/19/20 23:25 93 H 16 103/52 L 08/19/20 23:24 96 H 97 08/19/20 23:20 96 H 102/51 L 08/19/20 23:19 95 H 97 08/19/20 23:15 95 H 105/53 L 08/19/20 23:14 97 H 97 08/19/20 23:09 105 H 98 08/19/20 23:05 100 H 106/58 L 08/19/20 23:04 102 H 99 08/19/20 23:00 96 H 95/53 L 08/19/20 22:59 97 H 98 08/19/20 22:55 105 H 16 91/50 L 08/19/20 22:54 107 H 100 08/19/20 22:50 96 H 104/59 L 08/19/20 22:49 95 H 99 08/19/20 22:45 101 H 105/61 08/19/20 22:44 100 H 100 08/19/20 22:40 102 H 103/57 L 08/19/20 22:39 102 H 99 08/19/20 22:35 107 H 104/57 L 08/19/20 22:34 104 H 100 08/19/20 22:30 99 H 103/56 L 08/19/20 22:29 99 H 100 08/19/20 22:25 36.8 C 101 H 16 110/66 08/19/20 22:24 96 H 100 08/19/20 22:20 98 H 103/57 L 08/19/20 22:19 100 H 99 08/19/20 22:15 106 H 104/57 L 08/19/20 22:14 98 H 99 08/19/20 22:10 104 H 103/55 L 08/19/20 22:09 107 H 99 08/19/20 22:05 36.4 C L 60 18 92/55 L 08/19/20 22:04 101 H 73 L 08/19/20 22:03 99 H 90 08/19/20 22:00 111 H 96/56 L 08/19/20 21:59 101 H 96 08/19/20 21:57 121 H 93 08/19/20 21:55 36.5 C 77 16 96/53 L 08/19/20 21:54 86 100 08/19/20 21:50 91 H 93/52 L 08/19/20 21:49 94 H 100 08/19/20 21:48 101 H 85/50 L 08/19/20 21:45 36.5 C 18 08/19/20 21:44 110 H 97 08/19/20 21:41 79 93 08/19/20 21:40 60 111/56 L 08/19/20 21:39 62 95 08/19/20 21:38 110 H 79/50 L 08/19/20 21:37 129 H 70/33 L 08/19/20 21:36 151 H 89 L 08/19/20 21:35 108 H 18 79/44 L 08/19/20 21:34 106 H 100 08/19/20 19:39 137 H 96 08/19/20 19:35 93 H 119/75 08/19/20 19:34 116 H 89 L 08/19/20 19:29 99 H 95 08/19/20 19:24 86 98 08/19/20 19:21 95 H 106/63 08/19/20 19:19 100 H 95 08/19/20 19:14 104 H 100 08/19/20 19:10 93 H 90 08/19/20 19:09 83 97 08/19/20 19:06 96 H 119/74 08/19/20 19:05 97 H 90 08/19/20 19:04 88 98 08/19/20 19:00 36.5 C 18 08/19/20 18:59 79 96 08/19/20 18:54 86 96 08/19/20 18:51 84 88 L 08/19/20 18:50 81 116/71 08/19/20 18:49 87 99 08/19/20 18:44 84 100 08/19/20 18:43 87 89 L 08/19/20 18:41 37.0 C 16 08/19/20 18:39 86 97 08/19/20 18:36 92 H 106/65 08/19/20 18:35 81 88 L 08/19/20 18:34 92 H 95 08/19/20 18:29 100 H 95 08/19/20 18:24 98 H 98 08/19/20 18:20 92 H 107/62 08/19/20 18:19 80 94 08/19/20 18:14 98 H 93 08/19/20 18:09 80 94 08/19/20 18:07 82 111/63 08/19/20 18:04 85 96 08/19/20 17:59 83 93 08/19/20 17:54 85 95 08/19/20 17:50 96 H 108/66 08/19/20 17:49 79 92 08/19/20 17:44 82 94 08/19/20 17:39 86 94 08/19/20 17:37 83 111/66 08/19/20 17:34 80 93 08/19/20 17:29 84 92 08/19/20 17:24 97 H 96 08/19/20 17:20 102 H 83 L 08/19/20 17:19 93 H 101/57 L 100 08/19/20 17:14 125 H 95 08/19/20 17:10 107 H 101/59 L 08/19/20 17:09 103 H 98 08/19/20 17:04 101 H 98 08/19/20 16:59 112 H 92/52 L 97 08/19/20 16:54 97 H 98 08/19/20 16:49 111 H 99/59 L 95 08/19/20 16:44 104 H 98 08/19/20 16:39 106 H 98/62 L 98 08/19/20 16:34 101 H 100 08/19/20 16:30 97 H 105/59 L 08/19/20 16:29 94 H 99 08/19/20 16:24 96 H 99 08/19/20 16:20 93 H 101/65 08/19/20 16:19 90 100 08/19/20 16:14 96 H 100 08/19/20 16:09 97 H 99 08/19/20 16:07 93 H 103/61 08/19/20 16:05 86 103/54 L 08/19/20 16:04 96 H 100 08/19/20 16:03 87 105/59 L 08/19/20 16:01 98 H 89 L 08/19/20 16:00 86 120/73 08/19/20 15:59 86 98 08/19/20 15:55 98 H 94 08/19/20 15:54 107 H 98 08/19/20 15:50 103 H 90 08/19/20 15:49 108 H 92 08/19/20 15:45 99 H 92 08/19/20 15:44 102 H 95 08/19/20 15:39 93 H 100 08/19/20 15:36 83 94 08/19/20 15:34 86 100 08/19/20 15:32 84 121/76 08/19/20 14:42 82 113/71 08/19/20 13:24 90 117/74 08/19/20 12:16 86 120/75 08/19/20 12:15 36.5 C 86 18 120/75 Pulse Ox 08/20/20 10:00 08/20/20 09:00 08/20/20 08:20 100 08/20/20 08:00 08/20/20 07:00 08/20/20 06:00 08/20/20 05:00 08/20/20 04:10 08/20/20 04:00 08/20/20 03:00 08/20/20 02:00 08/20/20 00:55 08/19/20 23:55 08/19/20 23:44 08/19/20 23:39 05/10/21 23:35 08/19/20 23:34 08/19/20 23:30 08/19/20 23:29 08/19/20 23:25 08/19/20 23:24 08/19/20 23:20 08/19/20 23:19 08/19/20 23:15 08/19/20 23:14 08/19/20 23:09 08/19/20 23:05 08/19/20 23:04 08/19/20 23:00 08/19/20 22:59 08/19/20 22:55 08/19/20 22:54 08/19/20 22:50 08/19/20 22:49 08/19/20 22:45 08/19/20 22:44 08/19/20 22:40 08/19/20 22:39 08/19/20 22:35 08/19/20 22:34 08/19/20 22:30 08/19/20 22:29 08/19/20 22:25 08/19/20 22:24 08/19/20 22:20 08/19/20 22:19 08/19/20 22:15 08/19/20 22:14 08/19/20 22:10 08/19/20 22:09 08/19/20 22:05 08/19/20 22:04 08/19/20 22:03 08/19/20 22:00 08/19/20 21:59 08/19/20 21:57 08/19/20 21:55 08/19/20 21:54 08/19/20 21:50 08/19/20 21:49 08/19/20 21:48 08/19/20 21:45 08/19/20 21:44 08/19/20 21:41 08/19/20 21:40 08/19/20 21:39 08/19/20 21:38 08/19/20 21:37 08/19/20 21:36 08/19/20 21:35 08/19/20 21:34 08/19/20 19:39 08/19/20 19:35 08/19/20 19:34 08/19/20 19:29 08/19/20 19:24 08/19/20 19:21 08/19/20 19:19 08/19/20 19:14 08/19/20 19:10 08/19/20 19:09 08/19/20 19:06 08/19/20 19:05 08/19/20 19:04 08/19/20 19:00 08/19/20 18:59 08/19/20 18:54 08/19/20 18:51 08/19/20 18:50 08/19/20 18:49 08/19/20 18:44 08/19/20 18:43 08/19/20 18:41 08/19/20 18:39 08/19/20 18:36 08/19/20 18:35 08/19/20 18:34 08/19/20 18:29 08/19/20 18:24 08/19/20 18:20 08/19/20 18:19 08/19/20 18:14 08/19/20 18:09 08/19/20 18:07 08/19/20 18:04 08/19/20 17:59 08/19/20 17:54 08/19/20 17:50 08/19/20 17:49 08/19/20 17:44 08/19/20 17:39 08/19/20 17:37 08/19/20 17:34 08/19/20 17:29 08/19/20 17:24 08/19/20 17:20 08/19/20 17:19 08/19/20 17:14 08/19/20 17:10 08/19/20 17:09 08/19/20 17:04 08/19/20 16:59 08/19/20 16:54 08/19/20 16:49 08/19/20 16:44 08/19/20 16:39 08/19/20 16:34 08/19/20 16:30 08/19/20 16:29 08/19/20 16:24 08/19/20 16:20 08/19/20 16:19 08/19/20 16:14 08/19/20 16:09 08/19/20 16:07 08/19/20 16:05 08/19/20 16:04 08/19/20 16:03 08/19/20 16:01 08/19/20 16:00 08/19/20 15:59 08/19/20 15:55 08/19/20 15:54 08/19/20 15:50 08/19/20 15:49 08/19/20 15:45 08/19/20 15:44 08/19/20 15:39 08/19/20 15:36 08/19/20 15:34 08/19/20 15:32 08/19/20 14:42 08/19/20 13:24 08/19/20 12:16 08/19/20 12:15 Transfer of Care Handoff Completed per policy Notes Mental Status: alert / awake / arousable Patient Amnestic to Procedure: Yes Nausea / Vomiting: adequately controlled Pain: adequately controlled Airway Patency, RR, SpO2: stable & adequate BP & HR: stable & adequate Hydration State: stable & adequate Neuraxial Anesthesia: was administered and sensory block resolved Anesthetic Complications: no major complications apparent and Pt Satisfied with anesthetic care Notes: The patient is doing well. She is comfortable and her vital signs are s table.
[2020-08-20] MEDS ORDERED: PROMETHAZINE HCL 25 MG in SODIUM CHLORIDE 0.9% 50 ML IV PRN (15:02)
[2020-08-20] MEDS ORDERED: diphenhydrAMINE 50 MG/ML VIAL IV PRN (15:02)
[2020-08-20] MEDS ORDERED: diphenhydrAMINE Capsule 25 MG CAP PO PRN (15:02)
[2020-08-20] MEDS ORDERED: ONDANSETRON INJ 2 MG/ML 2 ML VIAL IV PRN (15:02)
[2020-08-20] MEDS: ACETAMINOPHEN W/CODEINE #3 1 TAB PO PRN ×2 (17:24→21:02)
[2020-08-20] MEDS ORDERED: bisacodyL 5 MG TABEC PO SCH (20:00)
[2020-08-20] MEDS: IBUPROFEN 600 MG TAB PO PRN (21:02)
[2020-08-20 22:55] LABS: Marijuana Quant, GCMS Urine 255 ng/mL (<5)
[2020-08-21] MEDS: ACETAMINOPHEN W/CODEINE #3 1 TAB PO PRN ×5 (03:48→21:48)
[2020-08-21] MEDS: IBUPROFEN 600 MG TAB PO PRN ×5 (03:48→21:47)
[2020-08-21 06:24] LABS: Hematocrit (blood only) 22.9 % (37-47); Hemoglobin 7.7 g/dL (12.0-16.0)
[2020-08-21] MEDS: DOCUSATE SODIUM 100 MG CAP PO SCH ×2 (08:07→21:47)
[2020-08-21] MEDS: FERROUS SULFATE 325 MG TAB PO SCH (08:07)
[2020-08-21] MEDS: PRENATAL VITAMIN 1 TAB PO SCH (08:07)
[2020-08-21] MEDS: SIMETHICONE 80 MG CHEW PO SCH ×4 (08:07→21:46)
--- NOTE | 2020-08-21 09:49 | Surgery Progress Note ---
Date of Service August 21, 2020 Assessment & Plan Admission and Anticipated Discharge Date Admission Date: August 19, 2020 Physical Exam Physical Exam: POD#2 doing well passing gas tolerating diet Constitutional: WD/WN, vitals as above well developed and comfortable abdomen soft and non-tender incision c/d/i no edema neg Scarlett's for d/c in AM Results & Data ([facility]) Vital Signs (Past 12 Hours) Vital Signs Temp Pulse Resp BP 08/21/20 07:25 36.7 C 88 20 113/72 08/21/20 00:30 36.8 C 94 H 17 102/66 Laboratory Results Laboratory Results - last 48 hr 08/19/20 08/19/20 08/19/20 09:38 19:49 19:49 WBC 9.66 RBC 4.02 L Hgb 11.4 L Hct 34.5 L MCV 85.8 MCH 28.4 MCHC 33.0 RDW Std Deviation 47.8 H RDW Coeff of Sonal 15.2 H Plt Count 190 MPV 10.3 Immature Gran % (Auto) Neut % (Auto) Lymph % (Auto) Carbon % (Auto) Eos % (Auto) Baso % (Auto) Neut # (Auto) Lymph # (Auto) Carbon # (Auto) Eos # (Auto) Baso # (Auto) Immature Gran # (Auto) RBC Morphology Cord ABG pH 7.17 Cord ABG pCO2 61 Cord ABG pO2 11 Cord ABG HCO3 22 Cord ABG Base Excess -7.6 Cord ABG O2 Sat < 60.0 Cord VBG pH 7.26 Cord VBG pCO2 45 Cord VBG pO2 27 Cord VBG HCO3 20 Cord VBG Base Excess -7.2 Cord VBG O2 Sat < 60.0 Barometric Pressure 731.5 731.5 Blood Gas Comments A INFANT A Urine Opiates Screen Ur Methadone, Qual Urine Barbiturates Ur Phencyclidine (PCP) U Amphetamin/Meth Scrn MDMA (Ecstasy) Screen U Benzodiazepines Scrn Ur Cocaine Metabolite U Marijuana (THC) Screen U Marijuana THC Carboxy Drug Screen Comment 08/19/20 08/19/20 08/20/20 Unknown Unknown 05:40 WBC 12.29 H RBC 2.67 L Hgb 7.6 L D Hct 23.4 L MCV 87.6 MCH 28.5 MCHC 32.5 RDW Std Deviation 48.9 H RDW Coeff of Sonal 15.4 H Plt Count 157 MPV 9.9 Immature Gran % (Auto) 0.2 Neut % (Auto) 81.0 Lymph % (Auto) 11.4 Carbon % (Auto) 7.2 Eos % (Auto) 0.1 Baso % (Auto) 0.1 Neut # (Auto) 9.96 H Lymph # (Auto) 1.40 Carbon # (Auto) 0.88 H Eos # (Auto) 0.01 Baso # (Auto) 0.01 Immature Gran # (Auto) 0.03 H RBC Morphology Unremarkable Cord ABG pH Cord ABG pCO2 Cord ABG pO2 Cord ABG HCO3 Cord ABG Base Excess Cord ABG O2 Sat Cord VBG pH Cord VBG pCO2 Cord VBG pO2 Cord VBG HCO3 Cord VBG Base Excess Cord VBG O2 Sat Barometric Pressure Blood Gas Comments Urine Opiates Screen Neg Ur Methadone, Qual Neg Urine Barbiturates Neg Ur Phencyclidine (PCP) Neg U Amphetamin/Meth Scrn Neg MDMA (Ecstasy) Screen Neg U Benzodiazepines Scrn Neg Ur Cocaine Metabolite Neg U Marijuana (THC) Screen Pos H U Marijuana THC Carboxy 255 H Drug Screen Comment SEE NOTE 08/21/20 06:09 WBC RBC Hgb 7.7 L Hct 22.9 L MCV MCH MCHC RDW Std Deviation RDW Coeff of Sonal Plt Count MPV Immature Gran % (Auto) Neut % (Auto) Lymph % (Auto) Carbon % (Auto) Eos % (Auto) Baso % (Auto) Neut # (Auto) Lymph # (Auto) Carbon # (Auto) Eos # (Auto) Baso # (Auto) Immature Gran # (Auto) RBC Morphology Cord ABG pH Cord ABG pCO2 Cord ABG pO2 Cord ABG HCO3 Cord ABG Base Excess Cord ABG O2 Sat Cord VBG pH Cord VBG pCO2 Cord VBG pO2 Cord VBG HCO3 Cord VBG Base Excess Cord VBG O2 Sat Barometric Pressure Blood Gas Comments Urine Opiates Screen Ur Methadone, Qual Urine Barbiturates Ur Phencyclidine (PCP) U Amphetamin/Meth Scrn MDMA (Ecstasy) Screen U Benzodiazepines Scrn Ur Cocaine Metabolite U Marijuana (THC) Screen U Marijuana THC Carboxy Drug Screen Comment
[2020-08-21] MEDS ORDERED: bisacodyL 10 MG SUPP PR PRN (23:07)
[2020-08-22] MEDS: IBUPROFEN 600 MG TAB PO PRN ×3 (01:38→10:13)
[2020-08-22] MEDS: ACETAMINOPHEN W/CODEINE #3 1 TAB PO PRN ×3 (01:38→10:14)
[2020-08-22] MEDS: DOCUSATE SODIUM 100 MG CAP PO SCH (08:20)
[2020-08-22] MEDS: FERROUS SULFATE 325 MG TAB PO SCH (08:20)
[2020-08-22] MEDS: PRENATAL VITAMIN 1 TAB PO SCH (08:20)
[2020-08-22] MEDS: SIMETHICONE 80 MG CHEW PO SCH (08:20)
--- NOTE | 2020-08-22 08:32 | Surgery Progress Note ---
Date of Service August 22, 2020 Assessment & Plan Admission and Anticipated Discharge Date Admission Date: August 19, 2020 Subjective POD#3 doing well tolerating diet passing gas Physical Exam Constitutional: WD/WN, vitals as above well developed and comfortable abdomen soft incision c/d/i no edema neg Scarlett's for d/c today Results & Data ([facility]) Vital Signs (Past 12 Hours) Vital Signs Temp Pulse Resp BP Pulse Ox 08/21/20 23:30 36.5 C 85 17 112/72 98 Laboratory Results Laboratory Results - last 48 hr 08/19/20 08/21/20 Unknown 06:09 Hgb 7.7 L Hct 22.9 L U Marijuana THC Carboxy 255 H Drug Screen Comment SEE NOTE
--- NOTE | 2020-08-27 11:34 | Discharge Summary (DS) ---
HISTORY OF PRESENT ILLNESS: This is a 24-year-old G3, P2, due date 08/22/2020 who presented to labor and delivery on 08/19/2020 for induction of labor. The patient was being induced because of history of drug abuse. Induction was started with a Alston bulb, which was inserted without difficulty. Pitocin augmentation was started as well. The patient went on then dilated to about 3 cm. An attempt to do amniotomy led to spontaneous descent of the umbilical cord, stat section was performed. Details of the are in the operative note. The patient delivered a live . Weight and Apgars in pediatric notes as well. Postoperatively, the patient did well, met all milestones in recovery. She was discharged home in stable condition on 08/22/2020. PAST MEDICAL HISTORY: History of asthma, anxiety and drug abuse. PAST SURGICAL HISTORY: Dental surgery. SOCIAL HISTORY: The patient denied tobacco, drug, or alcohol use in this . FAMILY HISTORY: Noncontributory. ALLERGIES: PATIENT IS ALLERGIC TO OXYCODONE. PHYSICAL EXAMINATION: VITAL SIGNS: On 08/22/2020 showed blood pressure 114/71, pulse of 69, respiration of 18, temperature 36.6. HEART: S1, S2, regular rhythm and rate. LUNGS: Clear to auscultation bilaterally. ABDOMEN: Nontender, nondistended. Incision clean, dry and intact. EXTREMITIES: No cyanosis, clubbing or edema. LABORATORY DATA: On 08/21/2020 showed hemoglobin of 7.7, hematocrit of 22.9. CONDITION ON DISCHARGE: Stable. OPERATION: Emergency section. DISCHARGE DIAGNOSIS: Postop after section. PLAN ON DISCHARGE: The patient is discharged home with instructions regarding diet, activity, and followup appointment.
== END 2020-08-22 11:15 | disposition home or self-care (01) | DRG 787 ==
LOC: 4S1 07:43 → 4S2 23:55